=== PATIENT | female | born 1950 | race Caucasian/White ===

== ENCOUNTER 2024-10-06 11:10 | Outpatient (CLI) | payer MEDICARE, BC, SELFPAY ==
--- NOTE | ~2024-10-06 | CT_ITS ---
CT Scan of the Chest without Contrast: Clinical Indication: Chest pain Technique: Contiguous sections were acquired throughout the chest without intravenous contrast. Dose reduction technique was used on this scan by utilizing automated exposure control and iterative recon struction technique. The dose-length product (DLP) was 191.92 mGy-cm. Findings: There is no evidence of any significant mediastinal, hilar or axillary lymphadenopathy. There are mil d atherosclerotic calcifications of the aorta and coronary arteries. There is no evidence of pleural or pericardial effusion. There is severe emphysema. Celsite medial right upper lobe granuloma present. 4 mm nodule noted the i nferior right upper lobe (axial image 60). There is bibasilar peripheral chronic interstitial change. Images through the upper abdomen reveal no abnormalities. Impression: Severe emphysema with bibasilar peripheral chronic interstitial change. 4 mm right upper lobe nodule, as detailed above. Consider one-year follow-up exam. Reviewed, dictated and finalized at location . Impression: Severe emphysema with bibasilar peripheral chronic interstitial change. 4 mm right upper lobe nodule, as detailed above. Consider one-year follow-up ex am.
--- NOTE | ~2024-10-06 | CT_ITS ---
CT of the Abdomen: Indication: Abdominal pain Technique: 2.5 mm axial scans were obtained through the abdomen prior to and following intravenous a dministration of 100 cc of Omnipaque 350. Dose reduction technique was used on this scan by utilizing automated exposure control and iterative reconstruction technique. The dose-length product (DLP) was 677.65 mGy-cm. Findings: Scans through the lung bases demonstrate peripheral chronic interstitial change. There is linear bibasilar scarring as well.. The liver, spleen, pancreas, gallbladder, adrenals and kidneys are within normal limits. There are at herosclerotic calcifications of the aorta. No lymphadenopathy. Visualized bowel loops are unremarkable. No ascites. Impression: Bibasilar chronic interstitial pulmonary disease. No other significant findings. Reviewed, dictated and finalized at [facility]. Impression: Bibasilar chronic interstitial pulmonary disease. No other significant findings.
[2024-10-06 11:59] LABS: Estimated Glomerular Filt Rate 49
== END 2024-10-06 11:11 | disposition home or self-care (01) ==
LOC: MICIMG 11:14
PROVIDERS: PCP Family Medicine; Visit Provider Internal Medicine
DX: J43.9 Emphysema, unspecified (principal); J84.89 Other specified interstitial pulmonary diseases; R91.1 Solitary pulmonary nodule
CPT/HCPCS: 71250; 74170; Q9967

== ENCOUNTER 2024-11-20 15:42 | Inpatient (IN) | payer MEDICARE, BC, SELFPAY ==
--- NOTE | ~2024-11-20 | US_ITS ---
US abdomen limited INDICATION: Right upper quadrant pain. Pancreatitis. PROCEDURE: Realtime right upper abdominal ultrasound. COMPARISON: CT dated 11/20/2024 FINDINGS: Pancreas appears thickened and echogenic, consistent with known pancreatitis. Diffusely ec hogenic liver, consistent with fatty infiltration. There is normal directional flow in the portal ve in. The gallbladder is normal without stones, gallbladder wall thickening or pericholecystic fluid. Comm on bile duct measures 2 mm. No sonographic Box's sign. IMPRESSION: 1: Thickened echogenic pancreas, consistent with known pancreatitis. 2: Fatty infiltration of the liver. Reviewed, dictated and finalized at location A.
--- NOTE | ~2024-11-20 | CT_ITS ---
EXAMINATION: CT abdomen pelvis w con DATE: 11/20/2024 18:18 INDICATION: abd pain; elevated lipase TECHNIQUE: Computed tomography (CT) of the abdomen and pelvis was performed with 100 mL Omnipaque-350 intravenous contrast. Automated exposure control and iterative reconstruction technique were employe d. The dose-length product was 344.42 mGy-cm. COMPARISON: CT abdomen, 10/06/2024. FINDINGS: Lower thorax: Bibasilar chronic interstitial lung disease. Mitral and coronary artery calcification. Liver: Diffuse fatty infiltration. Biliary/Gallbladder: Gallbladder is normal. No bile duct dilation. Pancreas: Moderate pancreatic edema and moderate surrounding inflammatory stranding/fluid. No duct di lation. No mass Spleen: Normal. Adrenals:No mass. Kidneys: No suspicious mass, obstructing stone, or hydronephrosis. Bilateral hypodensities, too small to characterize but most likely represent cysts. Simple right lower pole cyst. GI tract: Mild gastric wall edema. Mild wall thickening of the second portion of the duodenum, likely reactive. No small or large bowel dilation. Normal appendix. Diverticulosis without diverticulitis. Mesentery/Peritoneum: No ascites, mass, or free air. Retroperitoneum: No mass. Pelvis: Pelvic organs are within normal limits. Soft Tissues: Small fat-containing uncomplicated appearing umbilical hernia. Bones: No acute osseous finding. IMPRESSION: Chronic interstitial lung disease. Mild esophagitis/gastritis. Hepatic steatosis. Acute interstitial pancreatitis. Reviewed, dictated and finalized at location K.
--- NOTE | ~2024-11-20 | XR_ITS ---
Portable chest x-ray Comparison: None Clinical History: Shortness of breath Findings: Small bilateral pleural effusions are present with mild bibasilar pulmonary edema/atelecta sis. Cardiomediastinal silhouette is stable. Bones and soft tissues are unremarkable. Impression: Small bilateral pleural effusions with mild bibasilar pulmonary edema/atelectasis. Reviewed, dictated and finalized at location . Impression: Small bilateral pleural effusions with mild bibasilar pulmonary edema/atelectas is.
[2024-11-20 15:51] VITALS: BP 147/72; PULSE 56; RESP 16; TEMP 36.6; O2SAT 95
[2024-11-20 16:42] LABS: Basophils Percent Auto 0.2 % (0.2-1.2); Eosinophils Percent Auto 0.1 % (0-4.4); Hematocrit 40.2 % (37.0-47.0); Hemoglobin 12.8 g/dL (12.0-15.0); Immature Granulocyte Absolute 0.03 K/mm3 (0.00-0.031); Immature Granulocyte Percent A 0.3 % (0-0.5); Lymphocytes Absolute Auto 0.63 K/mm3 (0.9-3.2); Mean Corpuscular HGB Conc 31.8 g/dl (32-36); Mean Corpuscular Hemoglobin 25.8 pg (26-34); Mean Platelet Volume 10.1 fl (7.4-10.4); Monocytes Absolute Auto 0.3 K/mm3 (0.1-0.6); Monocytes Percent Auto 2.5 % (2.6-8.5); Neutrophils Absolute Auto 9.5 K/mm3 (1.3-6.7); Neutrophils Percent Auto 90.9 % (45.5-73.1); Platelet Count Result 276 k/mm3 (150-375); Red Blood Count 4.96 M/mm3 (4.2-5.4); White Blood Count 10.5 K/mm3 (4.5-10.0)
[2024-11-20 16:54] LABS: Alanine Aminotransferase 15 U/L (6-35); Albumin Level 4.1 g/dL (3.5-5.1); Alkaline Phosphatase 94 U/L (38-126); Anion Gap 12 mmol/L (4-12); Aspartate Amino Transferase 28 U/L (14-36); Bilirubin,Total 0.5 mg/dL (0.2-1.3); Blood Urea Nitrogen 26 mg/dL (7-17); Calcium 9.1 mg/dL (8.4-10.2); Carbon Dioxide 22 mmol/L (22-30); Chloride 102 mmol/L (98-107); Estimated CRCL calculation 52 ml/min; Estimated Glomerular Filt Rate > 60; Glucose 147 mg/dL (65-110); Potassium 3.8 mmol/L (3.4-5.0); Sodium 136 mmol/L (137-145)
[2024-11-20 16:59] LABS: Platelet Estimate Adequate (Adequate); Schistocytes None Seen
[2024-11-20 17:12] LABS: Lipase 7606 U/L (23-300)
[2024-11-20] MEDS: FAMOTIDINE 20 MG/2 ML VIAL IV PUSH (17:53)
[2024-11-20] MEDS: ONDANSETRON INJ 4 MG/2 ML VIAL IV PUSH (17:53)
[2024-11-20] MEDS: MORPHINE SULFATE (*CRX) 4 MG/ML INJ 2 MG IV PUSH (17:58)
[2024-11-20 18:00] VITALS: BP 159/58; PULSE 55; RESP 16; O2SAT 97
--- OUTSIDE RECORDS SUMMARY | 2024-11-20 18:11 | XMS_ITS | Data Portability ---
Author Organization [facility], Main Office Address [address] [place] [address] Care Team Providers Care Frame Stylist Name Role Phone TONE HUMPHREYS Primary Care Provider Assessment Encounter Date Assessment Date Assessment LastModified by Organization Details LastModified Time 08/27/2023 08/27/2023 D/w pt and daughter about her findings and further plan of care. Explained about different options for her. All meds verified with them. Meds as directed. Fall risk precautions explained. Educated them about alarming symptoms to monitor at home. Pt declined for Pulmo referral. F/u in 3 months (Pt declined to come early). [email or web address] Not available 08/27/2023 16:38:24 12/17/2023 12/17/2023 73 yo F with - WELL ADULT VISIT - HYPOTHYROIDISM - HLD - ANXIETY - RA - ALLERGIC DERMATITIS - EX-SMOKER Labs by Rheumat: 11/10/23. D/w pt and her daughter about her findings, recent labs & imagines and further plan of care. Will do other routine labs. All meds verified with them. Meds as directed. Diet and exercise explained. Fall risk precautions explained. Cont f/u with Rheumat as per schedule. Cont f/u with Ophtho as per schedule. Pt has not gone for LDCT chest. HM: WWE - Long time ago. Pt declined. Mammo - Pt declined. DEXA - Osteoporosis ++. Pt is on Injectable from her Rheumat. Colonoscopy - Cologuard 10/01/23, neg. Flu - 04/13. Tdap - 12/07. Pneumo - Pt declined. Shingrix - At pharmacy/HD. F/u in 3 weeks. Annual labs in 12/14. Not available 12/17/2023 15:00:13 07/06/2024 07/06/2024 D/w pt and her daughter about her findings and further plan of care. Educated about alarming symptoms to monitor at home and get checked in ED. [email or web address] Not available 07/06/2024 13:12:53 07/27/2024 07/27/2024 D/w pt and her daughter about her findings and further plan of care. Educated about alarming symptoms to monitor at home and get checked in ED. Not available 07/27/2024 12:11:55 Plan of Treatment Reminders Order Date Submit Date Provider Last Modified By Organization Details Last Modified Time Details Appointments Medicare Wellness 30 2024 01:00P M Tone Humphreys MD Not available Not available Not available Lab lipid panel, serum [address] (Lab), [address] [place], [address], 12/29/2023 08:32:52 HbA1c (hemoglob in A1c), blood 2023 024 [email or web address] [facility] (Lab), [address] [place], [address], 02/04/2024 14:43:39 TSH, serum or plasma [address] (Lab), [address] [place], [address], 12/29/2023 08:32:52 uric acid, serum or plasma [address] (Lab), [address] [place], [address], 12/29/2023 08:32:53 vitamin D3, 25-hydrox y, serum [address] (Lab), [address] [place], [address], 12/29/2023 08:32:53 noninvasi ve colorecta l cancer DNA + occult blood screening , QL, stool 2023 024 [email or web address] [facility] (Cologuard Orders Only), [address], [place], [address], 09/03/2023 08:09:20 Referral None recorded. Procedures None recorded. Surgeries None recorded. Imaging XR, ribs, unilatera l, w/ PA chest 2024 025 [email or web address] [facility], [facility]7 [facility], [facility] [address], [address], 07/06/2024 17:08:39 LDCT, chest, for lung cancer screening - *Please call pt to schedule* 2023 024 [id number] Not available 10/01/2023 10:22:00 Medication Orders Linzess 72 mcg capsule 2024 025 [facility] [address] [place], [address], 07/27/2024 13:03:47 buspirone 10 mg tablet 2024 025 [facility] [address] [place], [address], 07/27/2024 13:03:47 paroxetin e 20 mg tablet 2024 025 [facility] [address] [place], [address], 07/27/2024 13:03:46 pravastat in 40 mg tablet 2024 025 [facility] [address] [place], [address], 07/27/2024 13:03:45 buspirone 10 mg tablet 2024 025 [facility] [address] [place], [address], 07/06/2024 13:13:55 paroxetin e 20 mg tablet 2024 025 [facility] [address], [address], [place], [address], 07/06/2024 13:13:55 pantopraz ole 40 mg tablet,de layed release 2024 025 [facility] [address], [address], [place], [address], 07/06/2024 13:04:15 famotidin e 20 mg tablet 2024 025 [facility] [address], [address], [place], [address], 07/27/2024 12:52:12 pravastat in 40 mg tablet 2024 025 [facility] [address], [place], [address], 07/06/2024 13:13:53 triamcino lone acetonide 0.1 % topical cream 2023 024 [facility] [address], [address], [place], [address], 12/17/2023 14:52:24 paroxetin e 20 mg tablet 2023 024 [facility] [address], [address], [place], [address], 12/17/2023 14:52:27 buspirone 10 mg tablet 2023 024 [facility] [address], [address], [place], [address], 12/17/2023 14:52:26 pravastat in 40 mg tablet 2023 024 [facility] [address], [place], [address], 12/17/2023 14:52:25 levothyro xine 100 mcg tablet 2023 024 [facility] [address] [place], [address], 12/17/2023 14:52:25 albuterol sulfate HFA 90 mcg/actua tion aerosol inhaler 2023 024 [facility] [address] [place], [address], 12/17/2023 14:30:12 triamcino lone acetonide 0.1 % topical cream 2023 024 [facility] [address] [facility], [place], [address], 08/27/2023 15:57:19 escitalop nata 10 mg tablet 2023 024 [facility] [address], [address] [place], [address], 12/17/2023 14:59:14 buspirone 10 mg tablet 2023 024 [facility] [address] [place], [address], 08/27/2023 16:00:17 pravastat in 40 mg tablet 2023 024 [facility] [address] [place], [address], 08/27/2023 15:54:41 levothyro xine 100 mcg tablet 2023 024 [facility] [address] [place], [address], 08/27/2023 15:54:43 Patient TargetsNo targets recorded. Patient Instructions Encounter Date Encounter Id Patient Instructions Last Modified By Organization Details Last Modified Time 07/06/2024 [id number] fall risk education [email or web address] Not available 07/06/2024 13:14:10 07/27/2024 [id number] fall risk education [email or web address] Not available 07/27/2024 13:03:39 Reason for Referral None Reported. Results Created Date Observation Date Name Description Value Unit Range Abnormal Flag Note LastModifiedBy Organization Detail LastModifiedTime 10/01/19 24 10/01/2023 COLOG UARD cologuard result reportable NEGATI VE negati ve normal NEGAT COLIN TEST RESUL T. A negat colin Colog uard resul t indic ates a low likel ihood that a color ectal cance r (CRC) or advan gus adeno ma (meg omato us polyp s with more advan gus pre-m align ant featu res) is prese nt. The chanc e that a perso n with a negat colin Colog uard test has a color ectal cance r is less than 1 in 1500 (nega tive predi ctive value >99.9 %) or has an advan gus adeno ma is less than 5.3% (nega tive predi ctive value 94.7% ). These data are based on a prosp ectiv e cross -sect ional study of 10,00 0 indiv [place]ual [place] risk for color ectal cance r who were scree cristobal with both Colog uard and colon oscop y. (Ashley Alexis et al, N Engl J Med 2014; 370(1 4):12 86-12 97) The octavio l value (refe rence range ) for this assay is negat colin. COLOG UARD RE-SC REENI NG RECOM MENDA TION: Perio dic color ectal cance r scree riaz is an impor tant part of preve ntive healt hcare for asymp tomat ic indiv [place]ual [place] risk for color ectal cance r. Follo wing a negat colin Colog uard resul t, the Ameri can Cance r Socie ty and U.S. Multi -Soci ety Task Force scree riaz guide lines recom mend a Colog uard re-sc reeni ng inter juanjose of 3 years . Refer ences : Ameri can Cance r Socie ty Guide line for Color ectal Cance r Scree riaz: https ://dyan w.can cer.o rg/ca ncer/ colon -rect al-ca ncer/ detec tion- diagn osis- stagi ng/ac s-rec ommen datio ns.ht ml.; Lloyd DK, Leilani ward CR, Maxi SaundersK, Color ectal Cance r Scree riaz: Recom menda tions for Physi cians and Patie nts from the U.S. Multi -Soci ety Task Force on Color ectal Cance r Scree riaz , Augustus Byers oente rolog y 2017; 112:1 016-1 030. TEST DESCR IPTIO N: [place] site algor ithmi c carlyn sis of stool DNA-b marcelino russell with hemog lobin immun oassa y. Quant itati ve value s of indiv idual bioma rkers are not repor table and are not assoc iated with indiv idual bioma rker resul t refer ence range s. Colog uard is inten ded for color ectal cance r scree riaz of adult s of eithe r sex, 45 years or older , who are at [facility] for color ectal cance r (CRC) . Colog uard has been appro kelle for use by the U.S. FDA. The perfo rmanc e of Colog uard was estab lishe d in a cross secti onal study of [facility] adult s aged 50-84 . Colog uard perfo rmanc e in patie nts ages 45 to 49 years was estim ated by sub-g roup carlyn sis of near- age group s. Colon oscop ies perfo rmed for a posit colin resul t may find as the most clini blu signi ficavelino t lesio n: color ectal cance r [4.0% ], advan gus adeno ma (incl uding sessi le oz panda polyp s great er than or equal to 1cm diame ter) [20%] or non- advan gus adeno ma [31%] ; or no color ectal neopl janes [45%] . These estim ates are deriv ed from a prosp ectiv e cross -sect ional scree riaz study of 10,00 0 indiv idual s [place] risk for color ectal cance r who were scree cristobal with both Colog uard and colon oscop y. (Ashley Alexis et al, N Engl J Med 2014; 370(1 4):12 86-12 97.) Colog uard may produ ce a false negat colin or false posit colin resul t (no color ectal cance r or preca ncero us polyp prese nt at colon oscop y follo w up). A negat colin Colog uard test resul t does not guara ntee the absen ce of CRC or advan gus adeno ma (pre- cance r). The curre nt Colog uard scree riaz inter juanjose is every 3 years . (Amer ican Cance r Socie ty and U.S. Multi -Soci ety Task Force ). Colog uard perfo rmanc e data in a 0 patie nt pivot al study using colon oscop y as the refer ence metho d can be acces sed at the follo wing locat ion: www.e xactl abs.c om/re sulstevan . Addit ional descr iptio n of the Colog uard test proce ss, warni ngs and preca ution s can be found at www.c ologu daphne.c om. Not Available [facility] (Cologuard Orders Only) [address], [place], [address], 10/08/2023 17:43:26 02/02/20 24 02/03/2024 URIC ACID SERUM uric acid 5.7 mg/dL 2.5-6. 2 Not Available [facility] (Lab) [address] [place], [address], 02/03/2024 16:06:30 02/02/20 24 02/03/2024 LIPID PANEL cholesterol 190 mg/dL 140-19 9 NIH CARLY NSUS RECOM MENDA TION FOR MARIE STERO L: ADULT CHILD LOW RISK: <200 <170 BORDE RLINE : <200- 239 ----- HIGH RISK: >240 >200 Not Available [facility] (Lab) [address] [place], [address], 02/03/2024 16:05:44 02/02/20 24 02/03/2024 LIPID PANEL triglyceride s 146 mg/dL 0-150 NIH CARLY NSUS REPOR T RECOM MENDA TION FOR TRIGL YCERI MARTITA: ADULT CHILD LOW RISK: <150 ----- BODER LINE: 150-1 99 ----- HIGH RISK: >200 ----- Not Available [facility] (Lab) [address] [place], [address], 02/03/2024 16:05:44 02/02/20 24 02/03/2024 LIPID PANEL HDL cholesterol 61 mg/dL 40- Not Available [facility] (Lab) [address] [place], [address], 02/03/2024 16:05:44 02/02/20 24 02/03/2024 LIPID PANEL LDL cholesterol, calculated 100 mg/dL 0-130 NIH CARLY NSUS REPOR T RECOM MENDA TIONS FOR LDL: ADULT CHILD LOW RISK <130 <110 (OPTI MAL LDL) <100 ----- BORDE RLINE : 130-1 59 ----- HIGH RISK: >160 >130 A TRIGL YCERI DE RESUL T >400 INVAL IDATE S THE CALCU LATIO N FOR LDL FRACT IONAT ION - THE LDL RESUL T WILL NOT BE REPOR PANDA. Not Available [facility] (Lab) [address] [place], [address], 02/03/2024 16:05:44 02/02/20 24 02/03/2024 VITAM IN D 25-HY DROXY [id number] 31.9 NG/mL 30-100 Vitam in D Statu s: Defic ient: <20 ng/mL Insuf ficie nt: 20-29 ng/mL Suffi cient : 30-10 0 ng/mL Not Available [facility] (Lab) [address] [place], [address], 02/03/2024 16:15:17 02/02/20 24 02/03/2024 TSH W/REF MITCH FT4 TSH with reflex free T4 3.170 uIU/m L 0.465- 4.680 Not Available [facility] (Lab) [address] [place], [address], 02/03/2024 16:29:16 02/02/20 24 02/03/2024 HEMOG LOBIN A1C HA1C 6.0 % 4.0-6. 0 Diabe kathrin Scree riaz Crite lauro: <5.7% Consi stent with absen ce of diabe kathrin 5.7-6 .4% Consi stent with incre ased risk for diabe kathrin (pred iabet es) >OR=6 .5% Consi stent with diabe kathrin REFER ENCE: Diabe kathrin Care 2016, 39(Lowe ppl.1 ):s13 -s22 Not Available [facility] (Lab) [address] [place], [address], 02/03/2024 19:45:05 07/06/19 25 07/06/2024 XR, ribs, unila teral , w/ PA chest No observ ation record ed. [email or web address] [facility] [address] [facility] [address], [place], [address], 07/27/2024 13:00:17 10/07/19 25 10/06/2024 CT, chest , w/o contr ast No observ ation record ed. [facility] [address], [place], [address], 10/06/2024 14:11:17 10/07/19 25 10/06/2024 CT, abdom en, w/wo contr ast No observ ation record ed. [email or web address] [facility] [address], [place], [address], 10/06/2024 15:20:19 Result Notes None recorded. Problems Name Problem SNOMED Code Status Onset Date Resolution Date Notes Provider Name and Address Organization Details Recorded Time Insomnia 820088911 Active 2021 Not Available [facility] 3 02:52:06 Panic attack 758473568 Active 2017 Not Available [facility] 3 02:52:06 Hypothyroidis m 50532287 Active 2019 Not Available [facility] 3 02:52:06 Anxiety 11008981 Active 2021 Not Available [facility] 3 02:52:06 Hyperlipidemi a 93223840 Active 2017 Not Available [facility] 3 02:52:06 Pain of joint 63510639 Active 2017 Not Available [facility] 3 02:52:06 Rheumatoid arthritis 98514089 Active 2017 labs from 11/2017 Not Available [facility] 3 02:52:06 Renal insufficiency 710636272 Active 2021 Not Available [facility] 3 02:52:06 Hyperglycemia 75124302 Active 2021 Not Available [facility] 3 02:52:07 Disorder of connective tissue 595536580 Active 2023 Tone Humphreys MD [address], [address] , [employer] 4 15:47:43 Anxiety disorder 165248039 Active 2023 Tone Humphreys MD [address], [place], [address] , [employer] 4 15:48:10 Ex-smoker 2152378 Active 2023 Tone Humphreys MD [address], [place], [address] , [employer] 4 15:52:24 Allergic contact dermatitis 957416923 Active 2023 Tone Humphreys MD [address] [place], [address] , [employer] 4 15:56:43 Overweight 857046097 Active 2023 Tone Humphreys MD [address], [place], [address] , [employer] 4 14:48:39 Rib pain 612351566 Active 2024 Tone Humphreys MD [address], [place], [address] , [employer] 5 12:59:04 Gastroesophag eal reflux disease without esophagitis 823991768 Active 2024 Tone Humphreys MD [address], [place], [address] , [employer] 5 13:01:38 Osteoporosis 78898293 Active 2024 Tone Humphreys MD [address] [employer] / [place], [address] , [employer] 5 13:13:34 Chronic idiopathic constipation 31771654 Active 2024 Tone Humphreys MD [address], [place], [address] , [employer] 5 13:01:43 Problem Notes None recorded. Medical Equipment None Reported. Allergies Allergen ID Allergen Name Allergen Category Reaction Reaction Severity Criticality Documentation Date Start Date Code Code System Note Provider Name and Address Organization Details Recorded Time 4699 nickel environme nt other mild Not available 08/20/2022 56378 29 RxNorm blist ering Not Available [employer] 3 03:00:19 Medications Name Sig Start Date Stop Date Status Note LastModified by Organization Details LastModified Time bupropion HCl SR 150 mg tablet,12 hr sustained -release TAKE 1 TABLET BY MOUTH TWICE DAILY 02/25 completed Not Available Not Available Not Available prednison e 10 mg tablet TAKE 1 TABLET BY MOUTH ONCE DAILY FOR 5 DAYS 09/12 completed Not Available Not Available Not Available paroxetin e 10 mg tablet TAKE 1 TABLET BY MOUTH ONCE DAILY 02/25 completed Not Available Not Available Not Available azithromy cat 250 mg tablet 12/16 completed Not Available Not Available Not Available pravastat in 40 mg tablet TAKE 1 TABLET BY MOUTH ONCE DAILY AT BEDTIME 2024 active Not Available Not Available Not Avai lable benzonata te 200 mg capsule TAKE 1 CAPSULE BY MOUTH THREE TIMES DAILY NEEDED FOR COUGH 12/16 completed Not Available Not Available Not Available meloxicam 15 mg tablet Take 1 tablet every day by oral route. 04/01 completed Arthriti s Not Available Not Available Not Available alendrona te 70 mg tablet 03/15 completed Patient decided not to start due to risks and side effects. Not Available Not Available Not Available leflunomi de 20 mg tablet TAKE 1 TABLET BY MOUTH ONCE DAILY 07/27 completed Not Available Not Available Not Available triamcino lone acetonide 0.1 % topical cream APPLY A THIN LAYER OF CREAM TOPICALL Y TO THE AFFECTED AREA(S) TWICE DAILY active Not Available Not Available No t Available levothyro xine 75 mcg tablet Take 1 tablet every day by oral route. 04/21 completed Not Available Not Available Not Available ketorolac 0.5 % eye drops 10/19 completed Not Available Not Available Not Available levothyro xine 100 mcg tablet TAKE 1 TABLET BY MOUTH ONCE DAILY IN THE MORNING 2024 active Not Available Not Available Not Avai lable levothyro xine 88 mcg tablet TAKE 1 TABLET BY MOUTH ONCE DAILY 12/13 completed increase d to 100 mcg on 09/13/20 Not Available Not Available Not Available alprazola m 0.25 mg tablet Take 1 tablet 3 times a day by oral route. 03/15 completed only when needed Not Available Not Available Not Available famotidin e 20 mg tablet TAKE 1 TABLET BY MOUTH ONCE DAILY AT BEDTIME FOR 90 DAYS 07/27 completed Not Available Not Available Not Available methotrex ate sodium 2.5 mg tablet 03/15 completed Not Available Not Available Not Available prednison e 2.5 mg tablet TAKE 2 TABLETS BY MOUTH TWICE DAILY FOR 5 DAYS, THEN 1 TAB TWICE DAILY FOR 5 DAYS, THEN 1 TAB ONCE DAILY FOR 5 DAYS, THEN 1 TAB EVERY OTHER DAY FOR 5 DOSES AND STOP 07/27 completed Not Available Not Available Not Available paroxetin e 20 mg tablet Take 1 tablet by mouth once daily QAM 2024 active Not Available Not Available Not Avai lable pantopraz ole 40 mg tablet,de layed release TAKE 1 TABLET BY MOUTH ONCE DAILY IN THE MORNING FOR 90 DAYS 2024 active Not Available Not Available Not Avai lable buspirone 10 mg tablet Take 1 tablet twice a day by oral route as needed for 90 days. 2024 active Not Available Not Available Not Avai lable folic acid 1 mg tablet 1 tab po daily 03/20 completed Not Available Not Available Not Available hydroxych loroquine 200 mg tablet TAKE 2 TABLETS BY MOUTH ONCE DAILY active Not Available Not Available No t Available albuterol sulfate HFA 90 mcg/actua tion aerosol inhaler INHALE 2 PUFFS BY MOUTH EVERY 4 TO 6 HOURS NEEDED active Not Available Not Available No t Available cefdinir 300 mg capsule TK ONE C PO Q 12 H X 10 DAYS active Not Available Not Available No t Available escitalop nata 10 mg tablet TAKE 1 TABLET BY MOUTH ONCE DAILY DIRECTED 12/16 completed Not Available Not Available Not Available Asprin Ec Low Dose 81 mg tablet,de layed release Take 1 tablet every day by oral route. 03/20 completed Not Available Not Available Not Available moxifloxa cat 0.5 % eye drops 10/19 completed Not Available Not Available Not Available methotrex ate 2.5mg x10 for 1 day weekly 03/15 completed Every Thursday. Not Available Not Available Not Available diclofena c 1 % topical gel 02/25 completed Not Available Not Available Not Available levothyro xine 75 mcg capsule Take 1 capsule every day by oral route. 10/19 completed Not Available Not Available Not Available Lotemax 0.5 % eye gel drops 10/19 completed Not Available Not Available Not Available Flonase Allergy Relief 07/27 completed Not Available Not Available Not Available Linzess 72 mcg capsule TAKE 1 CAPSULE BY MOUTH ONCE DAILY DIRECTED active Not Available Not Available No t Available Vitals Date Recorded Body height Body mass index (BMI) Body weight Body temperature Oxygen saturation Oxygen saturation in Arterial blood by Pulse oximetry Heart rate Systolic blood pressure Diastolic blood pressure Provider Name and Address Organization Details Last Updated DateTime 5 154.94 cm 28.4 kg/m2 89699.6 1 g 96.6 [degF] 97 % 97 % 84 /min 100 mm[Hg] 70 mm[Hg] Joseline Cortez RN [facility] [employer] 5 12:53:54 Date Recorded Body height Body mass index (BMI) Body weight Body temperature Heart rate Respiratory rate Oxygen saturation Oxygen saturation in Arterial blood by Pulse oximetry Systolic blood pressure Diastolic blood pressure Provider Name and Address Organization Details Last Updated DateTime 5 154.94 cm 28.4 kg/m2 58644.2 1 g 96.8 [degF] 74 /min 20 /min 97 % 97 % 108 mm[Hg] 70 mm[Hg] Ellen Thomas RN [facility] [employer] 5 12:57:12 Date Recorded Body temperature Oxygen saturation Oxygen saturation in Arterial blood by Pulse oximetry Provider Name and Address Organization Details Last Updated DateTime 08/27/2023 96.3 [degF] 94 % 94 % Tone Humphreys MD [address] [facility], [address], [address] , [place] [employer] [facility] [employer] 08/27/2023 16:35:40 Date Recorded Body height Body mass index (BMI) Body weight Heart rate Respiratory rate Systolic blood pressure Diastolic blood pressure Provider Name and Address Organization Details Last Updated DateTime 4 167.64 cm 25.6 kg/m2 45439.0 4 g 74 /min 20 /min 140 mm[Hg] 80 mm[Hg] Ellen Thomas RN [facility] [employer] 4 15:43:07 Date Recorded Respiratory rate Provider Name a nd Address Organization Details Last Updated DateTime 12/17/2023 20 /min Pretty Burns [address], [place], [address], [place] [employer] [facility] [employer] 12/17/2023 14:58:39 Date Recorded Body mass index (BMI) Body weight Body temperature Heart rate Heart rate Systolic blood pressure Diastolic blood pressure Provider Name and Address Organization Details Last Updated DateTime 4 25.5 kg/m2 71075.9 9 g 97.7 [degF] 82 /min 82 /min 132 mm[Hg] 80 mm[Hg] Ellen Thomas RN [facility] [employer] 4 14:47:42 Date Recorded Body height Oxygen saturation Oxygen saturation in Arterial blood by Pulse oximetry Provider Name and Address Organization Details Last Updated DateTime 12/17/2023 167.64 cm 97 % 97 % Daina Rivero MA [facility] [employer] 12/17/2023 14:33:52 Date Recorded Body height Provider Name an d Address Organization Details Last Updated DateTime 02/02/2024 167.64 cm Ellen Thomas RN [facility] [employer] 02/02/2024 15:52:36 Social History Question Answer Notes LastModified by Organizat ion Details LastModified Time Tobacco Smoking Status Former Smoker Tone Humphreys MD [address] [place] [address], [address], [facility] [employer] [facility] [employer] 08/27/2023 15:51:53 Are You Blind Or Do You Have Difficulty Seeing? No Information not available 11/21/2022 What Is Your Level Of Caffeine Consumption? Heavy [id number] Information not available 08/20/2022 How Much Tobacco Do You Chew? None [id number] Information not available 08/20/2022 In The 14 Days Before Symptom Onset, Have You Had Close Contact With A Laboratory-confir med COVID-19 While That Case Was Ill? No [id number] Information not available 08/20/2022 In The 14 Days Before Symptom Onset, Have You Had Close Contact With A Person Who Is Under Investigation For COVID-19 While That Person Was Ill? No [id number] Information not available 08/20/2022 Are You Deaf Or Do You Have Serious Difficulty Hearing? No Information not available 11/21/2022 What Type Of Diet Are You Following? REGULAR [id number] Information not available 08/20/2022 Which Illicit Or Recreational Drugs Have You Used? None [id number] Information not available 08/20/2022 Have There Been Any Changes To Your Family Or Social Situation? No Information no t available 11/21/2022 Do You Use Insect Repellent Routinely? No Information not available 11/21/2022 Where Do You Live? SingleLevelHouse Information not available 11/21/2022 Do You Have Any Pets? No Information not available 11/21/2022 What Is Your Relationship Status? Information not available 11/21/2022 Do You Use Your Seat Belt Or Car Seat Routinely? Yes Information not available 11/21/2022 Do You Have Smoke And Carbon Monoxide Detectors In Your Home? Yes Information not available 11/21/2022 Are There Any Smokers In Your House? No Information not available 11/21/2022 Do You Participate In Social Media? Yes Information not available 11/21/2022 Do You Use Sunscreen Routinely? No Information not available 11/21/2022 Have You Recently Traveled Abroad? No Information not available 11/21/2022 Do You Have Difficulty Walking Or Climbing Stairs? No Information not available 11/21/2022 Sex: Unknown Functional Status Question Answer Note LastModified by Organizat ion Details LastModified Time What is your level of alcohol consumption? Occasional [id number] Information not available 08/20/2022 Do you or have you ever used smokeless tobacco? Never used smokeless tobacco [id number] Information not available 08/20/2022 Are you currently employed? No Information not available 11/21/2022 Do you have transportation difficulties? No Information not available 11/21/2022 Are you able to walk? YESWOREST Information not available 11/21/2022 Do you have difficulty doing errands alone? No Information not available 11/21/2022 Are you able to care for yourself? No Information n ot available 11/21/2022 Do you have difficulty dressing or bathing? No Information not available 11/21/2022 Do you or have you ever used e-cigarettes or vape? Never used electronic cigarettes [id number] Information not available 08/20/2022 What is your exercise level? Occasional [id number] Information not available 08/20/2022 Mental Status Question Answer Note LastModified by Organizat ion Details LastModified Time Do you feel stressed (tense, restless, nervous, or anxious, or unable to sleep at night)? [id number] Information not available 11/21/2022 Do you have difficulty concentrating, remembering or making decisions? No Information no t available 11/21/2022 Family History Nothing Reported Notes:cancer, DM, glaucoma, Hypertension, Thyroid, Rheumatoid Arthritis Medical History Condition Response ALLERGIES/HAYFEVER Y HIGH CHOLESTEROL / HYPERLIPIDEMIA Y HEARTBURN / REFLUX Y HYPERTENSION Y ANXIETY DISORDER Y Gynecological History Statement/Question Response If Post Menopausal, Age at Menopause 50 Date of Last Colonoscopy Most Recent Bone Density Date of Last Pap Smear Age at Menarche 14 Most Recent Mammogram Desired Control Method Obstetrics History GPAL:G 0 P 0 0 0 0 Immunizations Vaccine Type Date Status Note Provider Nam e and Address Organization Details Recorded Time SARS-COV-2 (COVID-19) vaccine, UNSPECIFIED 1 completed Not Available [facility] 08/20/2022 02:59:59 SARS-COV-2 (COVID-19) vaccine, UNSPECIFIED 1 completed Not Available [facility] 08/20/2022 02:59:59 Influenza, high-dose, quadrivalent, PF 0 completed Not Available [facility] 08/20/2022 02:59:59 Influenza, high-dose, trivalent, PF 9 completed Not Available [facility] 08/20/2022 02:59:59 Influenza, high-dose, trivalent, PF 8 completed Not Available [facility] 08/20/2022 03:00:00 Tdap 8 completed Not Available [facility] 08/20/2022 03:00:00 Past Encounters Encounter ID Performer Location Encounter Start Date Encounter Closed Date Diagnosis/Indication Diagnosis SNOMED-CT Code Diagnosis ICD10 Code Diagnosis Note [id number] Tone Humphreys MD [facility] [address] [address] 09/12/2020 00:00:00 09/12/2020 16:02:03 [id number] Tone Humphreys MD [address] [address] 12/13/2020 00:00:00 12/13/2020 15:16:47 [id number] Ellen Guzman NP [address] [address] 02/25/2022 00:00:00 02/25/2022 16:14:47 [id number] Ellen Guzman NP [address] [address] 11/21/2022 14:26:21 11/21/2022 15:20:23 Hyperlipidemia 95971023 E78.5 Low fat dietPravas tatin 40 mg po nightly. Hypothyroidism 46723158 E03.9 Levothyrox ine 100 mcg po dailyTSH Rheumatoid arthritis [address] Stephen.Le flunomide 20 mg po daily.Hydr oxychloroq uine 200 mg po daily. Insomnia 020295728 G47.0 0 Work on no naps to get body to rest at night Renal insufficiency 7231 25480 N28.9 Gfr 54 on [facility] labs from September 2022 Hyperglycemia 12764209 R 73.9 Good on 09/2022 labs. Anxiety 88651199 F41.9 Paroxetine 20 mg po daily. [id number] Tone Humphreys MD [address] [address] 08/27/2023 15:32:51 08/27/2023 16:39:22 Rheumatoid arthritis 83450398 M06.9 Disorder o f connective tissue 670346368 M35.9 Hypothyroidism 89620665 E03.9 Anxiety disorder 3351553 06 F41.9 Hyperlipidemia 92068140 E78.5 Mammogram declined 91855 5004 Z53.20 Screening for malignant neoplasm of colon 787083381 Z12.11 Ex-smoker 3154439 Z87.89 1 Allergic c ontact dermatitis 288954409 L23.9 [id number] Tone Humphreys MD [address] [address] 12/17/2023 14:19:07 12/17/2023 15:02:18 Anxiety disorder 206608074 F41.9 Hypothyroidism 21737976 E03.9 Disorder o f connective tissue 270549075 M35.9 Rheumatoid arthritis 698 73983 M06.9 Hyperlipidemia 14498105 E78.5 Mammogram declined 03397 5004 Z53.20 Ex-smoker 1586979 Z87.89 1 Allergic c ontact dermatitis 795048889 L23.9 Family his tory of diabetes mellitus 412624748 Z83.3 [id number] Tone Humphreys MD [address] [address] 02/02/2024 15:32:47 02/02/2024 15:54:03 [id number] Tone Humphreys MD [address] [address] 07/06/2024 12:41:20 07/06/2024 13:12:11 Fall W19.XXXD Rib pain 075092814 R07.8 1 Gastroesop hageal reflux disease without esophagitis 987953819 K21.9 Anxiety disorder F41.9 Hyperlipidemia 84014911 E78.5 Osteoporosis 13706801 M8 1.0 [id number] Tone Humphreys MD [address] [address] 07/27/2024 12:43:36 07/27/2024 13:55:13 Fall W19.XXXD Rib pain 688441324 R07.8 1 resolved Gastroesop hageal reflux disease without esophagitis 202184064 K21.9 Anxiety disorder 5124070 06 F41.9 Hyperlipidemia 22062167 E78.5 Osteoporosis 49682995 M8 1.0 Chronic id iopathic constipation 27736097 K59.04 Rheumatoid arthritis 698 97915 M06.9 Health Concerns Section Related Observation LastModified by Organization Detai ls LastModified Time None Recorded Concern Status LastModified by Organization Details LastModified Time None Recorded Advance Directives Directive None Recorded Payers Encounter Date Sequence Insurance Name Policy Number Policy Caldwell Covered Member ID Caldwell Member ID Guarantor Name 08/27/2023 1 [place] Dotty W Cook [id number] Dotty Cook 08/27/2023 2 [place] [id number] Jerson Cook [id number] Dotty Cook 12/17/2023 1 [place] Dotty W Cook [id number] Dotty Cook 12/17/2023 2 [place] [id number] Jerson Novaks [id number] Dotty Cook 02/02/2024 1 [place] Dotty W Cook [id number] Dotty Cook 02/02/2024 2 [place] [id number] Jerson Novaks [id number] Dotty Cook 07/06/2024 1 [place] Dotty W Cook [id number] Dotty Cook 07/06/2024 2 [place] [id number] Jerson Shirley Cook [id number] Dotty Cook 07/27/2024 1 [place] Dotty W Cook [id number] Dotty Cook 07/27/2024 2 [place] [id number] Jerson Novaks [id number] Dotty Cook Notes Date Note Type Note Provider Name and Address Organization Details Recorded Time 08/27/2023 text/html Pt is here with her daughter for f/u on her meds and chronic conditions. Doing overall well. Denies any problem with meds. Pt lives with her and her daughter lives next door and she helps her regularly. Pt says her anxiety is still not controlled and wants to try new med for it. Denies any mood swings/SI/HI. Pt doesn't want to see any counsellor/psychi atrist for this. Pt has connective tissue disorder and is f/u with [facility] [place] for it and is on meds by them. Tone Humphreys MD [address] [facility], [facility] [address], [place], [address], [employer] 08/27/2023 16:39:00 12/17/2023 text/html Pt is here with her daughter for her annual exam. Doing overall well. Denies any problem with meds. Pt lives with her and her daughter lives next door and she helps her regularly. Doing well with her anxiety. Denies any mood swings/SI/HI. Pt doesn't want to see any counsellor/psychi atrist for this. Pt has connective tissue disorder and is f/u with [facility] [place] for it and is on meds by them. Tone Humphreys MD [address] [facility], [address], [place], [address], [employer] [facility] [employer] 12/17/2023 15:01:08 07/06/2024 text/html ACV:Here with he r daughter. C/o Lt sided ribcage area pain, on/off since her fall at home from her bed on 03/26/24. No head trauma/LOC. Pt has not seen anyone for this since than. C/o chronic abdominal burning pain for last few months. Pt has tried otc antacids, but its not helping her. Denies any n/v/c/d/blood in stool. Denies any problem with meds. Pt lives with her and her daughter lives next door and she helps her regularly. Doing well with her anxiety. Denies any mood swings/SI/HI. Pt doesn't want to see any counsellor/psychi atrist for this. Pt has connective tissue disorder and is f/u with [facility] [place] for it and is on meds by them. Tone Humphreys MD [address], [address], [place], [address], [employer] [facility] [employer] 07/06/2024 13:14:54 07/27/2024 text/html FUV:Here with he r daughter. F/u on x-rays, meds and chronic conditions. Doing very much better than last visit. Denies any problem with meds. No new concern. C/o Lt sided ribcage area pain, on/off since her fall at home from her bed on 03/26/24. No head trauma/LOC. Pt has not seen anyone for this since than. C/o chronic abdominal burning pain for last few months. Pt has tried otc antacids, but its not helping her. Denies any n/v/c/d/blood in stool. Denies any problem with meds. Pt lives with her and her daughter lives next door and she helps her regularly. Doing well with her anxiety. Denies any mood swings/SI/HI. Pt doesn't want to see any counsellor/psychi atrist for this. Pt has connective tissue disorder & RA and is f/u with [facility] [place] for it and is on meds by them. Tone Humphreys MD [address] [place] [address], [facility] [address], [place], [address], [place] [facility] 07/27/2024 13:10:23 OBGyn Episode No OBEpisode recorded.
[2024-11-20 18:35] VITALS: BP 169/69; PULSE 59; RESP 20; O2SAT 94
--- NOTE | 2024-11-20 18:54 | ED_ITS ---
HPI - Abdominal Pain General Chief Complaint: Abdominal Pain Stated Complaint: Abd pain x 2100 last PM, N/V Time Seen by Provider: 11/20/24 16:27 History of Present Illness HPI narrative: Patient with abd pain diffusely, nausea/vomiting since last night; has never had symptoms like this before. Related Data Home Medications ?Medication ?Instructions ?Recorded ?Confirmed ?Last Taken ?Type diclofenac sodium 1 % topical gel 2 gm topical QID 06/07/19 07/21/23 Unknown History (Voltaren) paroxetine HCl 10 mg tablet 10 mg PO DAILY 06/07/19 07/21/23 Unknown History pravastatin 40 mg tablet 40 mg PO DAILY 06/07/19 07/21/23 Unknown History loratadine 10 mg tablet 10 mg PO DAILY 11/25/19 07/21/23 Unknown History omeprazole 20 mg capsule,delayed 20 mg PO DAILY PRN Allergy Symptoms 02/03/20 07/21/23 Unknown History release levothyroxine 88 mcg tablet 88 mcg PO DAILY 04/06/20 07/21/23 Unknown History (Euthyrox) calcium 600 mg (as carbonate)-vit 1 tablet PO BID 12/12/20 07/21/23 Unknown History D3 10 mcg (400 unit)-minerals tablet docusate sodium 100 mg capsule 100 mg PO DAILY 12/12/20 07/21/23 Unknown History polyvinyl alcohol 1.4 % eye drops 1 drp EACH EYE DAILY 05/06/22 07/21/23 Unknown History vit A 7,160 unit-vit C 113 mg-vit tablet PO 05/06/22 07/21/23 Unknown History E 100 mseh-fohd-xwqzqu tablet Allergies Allergy/AdvReac Type Severity Reaction Status Date / Time nickel Allergy Intermediate Hives Verified 11/20/24 15:43 Review of Systems 2 Review of Systems: All systems reviewed & are unremarkable except as noted in HPI and below PMFSH Past Medical History Medical History Anxiety Generalized osteoarthritis of multiple sites Hyperthyroidism Mixed connective tissue disease Seasonal allergies Seronegative rheumatoid arthritis of multiple sites Vitamin D deficiency Surgical History Surgical History H/O breast biopsy History of carpal tunnel release S/P rotator cuff repair Family History Family History Sibling Rheumatoid arthritis Mother Arthritis Father Diabetes mellitus Social History Social History Smoking status: Former smoker Tobacco type: cigarettes Second hand tobacco smoke exposure: No Alcohol intake: never Substance use: never Substance use type: does not use Do You Feel Safe in your Home?: Yes Lack of Transportation: No Lack of Food: Never True Current Housing: I Have Housing Concerned About Future Housing: No Difficulty Paying Gas/Electric Bills: No Difficulty Paying for Meds: No Currently Unemployed: No Education: Decline to Answer Difficulty w/ Childcare or Family Care: No Living arrangements: with family Occupation/Education: occupation Gender identity (if verbalized by the patient): Female Sexual Orientation (if Verbalized by the Patient): Straight or Heterosexual Spiritual care concerns: No Exam 2 Narrative: EXAMINATION OF ORGAN SYSTEMS/BODY AREAS: Constitutional: Vital signs per nursing GENERAL:[No acute distress, non-toxic appearing.] HEAD: Normal with no signs of head trauma. EYES: EOMI, conjunctiva normal ENT: Hearing grossly intact LUNGS: Nonlabored breathing. HEART: [Regular rate and rhythm] ABD: [Soft], [tender to palpation] diffusely. EXT: Normal range of motion SKIN: [No rashes or lesions.] NEURO: [Alert and oriented x 3. No gross focal sensory or strength deficits.] PSYCH: Normal affect Course Vital Signs Vital signs: Vital Signs Temperature 98 F 11/20/24 15:51 Pulse Rate 56 L 11/20/24 15:51 Respiratory Rate 16 11/20/24 15:51 Blood Pressure 147/72 H 11/20/24 15:51 Pulse Oximetry 95 11/20/24 15:51 Oxygen Delivery Room Air 11/20/24 15:51 Temperature 98 F 11/20/24 15:51 Pulse Rate 59 L 11/20/24 18:35 Respiratory Rate 20 11/20/24 18:35 Blood Pressure 169/69 H 11/20/24 18:35 Pulse Oximetry 94 11/20/24 18:35 Oxygen Delivery Room Air 11/20/24 15:51 MDM - Abdominal Pain MDM Narrative Medical decision making narrative: Electronic medical record was reviewed. Patient presented to the ED with complaint of [abdominal pain and vomiting]. Vitals [were within acceptable limits]. Physical exam revealed [tenderness to palpation in abdomen]. Based on the patient's history and physical exam, my differential includes but is not limited to [gastritis, gastroenteritis, cholecystitis, pancreatitis, appendicitis]. [IV access was established by nursing staff. Patient was given zofran, famotidine, morphine]. CBC, BMP, lipase, LFTs, bilirubin and alk phos were obtained. Labs were pertinent for lipase 7600. [Decision was made to obtain a CT-abdomen to evaluate for acute abdominal process. CT-abdomen per radiology interpretation shows pancreatitis.] On reevaluation, the patient states that they are feeling better. There were no further witnessed episodes of vomiting in the emergency department. Discussed with patient and family her diagnosis and CT, they are agreeable to admission, discussed with hospitalist. Lab Data 11/20/24 16:38 11/20/24 16:38 Labs: Lab Results 11/20/24 Range/Units 16:38 WBC 10.5 H (4.5-10.0) K/mm3 RBC 4.96 (4.2-5.4) M/mm3 Hgb 12.8 (12.0-15.0) g/dL Hct 40.2 (37.0-47.0) % MCV 81.0 (80-100) fl MCH 25.8 L (26-34) pg MCHC 31.8 L (32-36) g/dl RDW 14.0 (11.5-14.5) % Plt Count 276 (150-375) k/mm3 MPV 10.1 (7.4-10.4) fl Immature Gran % (Auto) 0.3 (0-0.5) % Neut % (Auto) 90.9 H (45.5-73.1) % Lymph % (Auto) 6.0 L (18.3-44.2) % [place] % (Auto) 2.5 L (2.6-8.5) % Eos % (Auto) 0.1 (0-4.4) % Baso % (Auto) 0.2 (0.2-1.2) % Lymph # (Auto) 0.63 L (0.9-3.2) K/mm3 [place] # (Auto) 0.3 (0.1-0.6) K/mm3 Eos # (Auto) 0.0 (0-0.3) K/mm3 Baso # (Auto) 0.0 (0.0-0.1) K/mm3 Abs Immat Gran (auto) 0.03 (0.00-0.031) K/mm3 Absolute Neuts (auto) 9.5 H (1.3-6.7) K/mm3 Absolute Nucleated RBC 0.000 (0.0-0.012) K/mm3 Band Neutrophils % Not Reportable Nucleated RBC % 0.0 (0.0-0.2) % Platelet Estimate Adequate (Adequate) Schistocytes None seen Sodium 136 L (137-145) mmol/L Potassium 3.8 (3.4-5.0) mmol/L Chloride 102 (98-107) mmol/L Carbon Dioxide 22 (22-30) mmol/L Anion Gap 12 (4-12) mmol/L BUN 26 H (7-17) mg/dL Creatinine 0.74 (0.7-1.0) mg/dL Estim Creat Clear Calc 52 ml/min Estimated GFR > 60 (59 - ) Glucose 147 H (65-110) mg/dL Calcium 9.1 (8.4-10.2) mg/dL Total Bilirubin 0.5 (0.2-1.3) mg/dL AST 28 (14-36) U/L ALT 15 (6-35) U/L Alkaline Phosphatase 94 (38-126) U/L Total Protein 8.0 (6.3-8.2) g/dL Albumin 4.1 (3.5-5.1) g/dL Lipase 7606 H (23-300) U/L Imaging Data Radiologist's impression: ITS Impressions Abdomen/Pelvis CT 11/20/24 18:41 IMPRESSION: Chronic interstitial lung disease. Mild esophagitis/gastritis. Hepatic steatosis. Acute interstitial pancreatitis. Discharge Plan Discharge Clinical Impression: Pancreatitis Patient Disposition: Still a Patient Condition: Serious Patient Language: Bulgarian Prescriptions: No Action paroxetine HCl 10 mg tablet 10 mg PO DAILY pravastatin 40 mg tablet 40 mg PO DAILY diclofenac sodium [Voltaren] 1 % gel 2 gm TOPICAL QID omeprazole 20 mg capsule,delayed release(DR/EC) 20 mg PO DAILY MDD 20 mg PRN (Reason: Allergy Symptoms) levothyroxine [Euthyrox] 88 mcg tablet 88 mcg PO DAILY docusate sodium 100 mg capsule 100 mg PO DAILY calcium carbonate-vit D3-min 600 mg calcium- 400 unit tablet 1 tablet PO BID vit A-vit C-vit P-srbr-qmzepr 7,160-113-100 cgmx-gm-svwm tablet PO polyvinyl alcohol 1.4 % drops 1 drp EACH EYE DAILY prednisone 2.5 mg tablet 2.5 mg PO DAILY Qty: 40 1RF Rx Instructions: take 2 tabs BID for 5 days, 1 tab BID for 5 days, 1 tab qd for 5 days and then 1 tab qod for 5 doses and stop leflunomide 20 mg tablet 20 mg PO DAILY Qty: 90 1RF hydroxychloroquine [Plaquenil] 200 mg tablet 400 mg PO DAILY Qty: 180 1RF loratadine 10 mg tablet 10 mg PO DAILY prednisone 2.5 mg tablet 2.5 mg PO DAILY Qty: 40 0RF Rx Instructions: take 2 tabs BID for 5 days, 1 tab BID for 5 days, 1 tab qd for 5 days and then 1 tab qod for 5 doses and stop Follow-up/Referrals: Petr,MD Tone [Primary Care Provider] -
[2024-11-20] MEDS: MORPHINE SULFATE (*CRX) 2 MG/ML INJ IV PUSH ×2 (19:46→21:07)
[2024-11-20] MEDS: LACTATED RINGERS 1,000 ML 999 ML IV CONT (19:46)
--- NOTE | 2024-11-20 20:23 | P.HP_ITS ---
H&P: HPI History of Present Illness Date/Time: 11/20/24 22:00 Chief Complaint: Abdominal pain. Narrative: This is a 74-year-old female with seronegative rheumatoid arthritis, undifferentiated connective tissue disease, emphysema, postablative hypothyroidism, gastroesophageal reflux disease, hyperlipidemia, and anxiety who presented to the emergency department via private vehicle for evaluation of abdominal pain. She had a subway sandwich to for dinner last evening and she developed diffuse, upper abdominal pain radiating through to the back not long after. Associated symptoms include nausea, vomiting, and dry heaves. She has never had symptoms similar to this. She denies fever, chills, sweats, chest pain, shortness of breath, hematemesis, melena, hematochezia, and dysuria. No history of gallbladder disease, peptic ulcers, or pancreatitis. In the ED: Vital signs were stable on arrival. Labs are significant for WBC count of 10.5, sodium 136, BUN 26, creatinine 0.74, glucose 147, lipase 7606. Abdomen/pelvis CT showed acute interstitial pancreatitis, hepatic steatosis, mild esophagitis/gastritis, and chronic interstitial lung disease. She received analgesics and antiemetics and she is being admitted in this setting for further treatment and evaluation. She has no history of pancreatitis and denies history of high triglycerides and alcohol abuse. No recent change in medications. Review of Systems Review of Systems: 12 systems were reviewed and are negativ e except for as per HPI. [facility] Past Medical History Medical History (Updated 11/21/24 @ 06:04 by Dulce Sinha PA-C) Thyroid goiter status post radioactive iodine ablation Hypothyroidism Undifferentiated connective tissue disease Seronegative rheumatoid arthritis of multiple sites Seasonal allergies Anxiety Generalized osteoarthritis of multiple sites Vitamin D deficiency Mixed connective tissue disease Surgical History Surgical History History of cataract extraction History of repair of rotator cuff History of breast biopsy History of carpal tunnel release Family History Family History Sibling Rheumatoid arthritis Mother Arthritis Father Diabetes mellitus Social History Social History Social History: Surrogate medical decision maker: Agustina Rivera, daughter. Code status: Full code. Smoking status: Former smoker Tobacco type: cigarettes Second hand tobacco smoke exposure: No Alcohol intake: never Substance use: never Substance use type: does not use Do You Feel Safe in your Home?: Yes Lack of Transportation: No Lack of Food: Never True Current Housing: I Have Housing Concerned About Future Housing: No Difficulty Paying Gas/Electric Bills: No Difficulty Paying for Meds: No Currently Unemployed: No Education: High School Diploma/GED Difficulty w/ Childcare or Family Care: No Living arrangements: with family Occupation/Education: occupation Spiritual care concerns: No Meds Home Medications and Allergies Home Medications ?Medication ?Instructions ?Recorded ?Confirmed ?Type paroxetine HCl 10 mg tablet 10 mg PO DAILY 06/07/19 11/20/24 History pravastatin 40 mg tablet 40 mg PO DAILY 06/07/19 11/20/24 History omeprazole 20 mg capsule,delayed 20 mg PO DAILY PRN Allergy Symptoms 02/03/20 11/20/24 History release levothyroxine 88 mcg tablet 88 mcg PO DAILY 04/06/20 11/20/24 History (Euthyrox) calcium 600 mg (as carbonate)-vit 1 tablet PO BID 12/12/20 11/20/24 History D3 10 mcg (400 unit)-minerals tablet hydroxychloroquine 200 mg tablet 400 mg (2 x 200 mg) PO DAILY #180 11/17/23 11/20/24 Rx (Plaquenil) tabs Allergies Allergy/AdvReac Type Severity Reaction Status Date / Time nickel Allergy Intermediate Hives Verified 11/20/24 15:43 Vital Signs Vital Signs - 24 hr 11/20/24 15:51 11/20/24 18:00 11/20/24 18:35 Temperature 98 F Pulse Rate 56 L 55 L 59 L Respiratory Rate 16 16 20 Blood Pressure 147/72 H 159/58 H 169/69 H Pulse Oximetry 95 97 94 Oxygen Delivery Room Air Exam Narrative: General: Moderately ill-appearing female sitting up in bed. Weight: 69.1 kg. BMI: 27.9. HEENT: PERRL, EOMI. Sclera anicteric. Tacky mucous membranes. Neck: Supple. Respiratory: Lungs are clear to auscultation bilaterally. Cardiovascular: Regular rate and rhythm with S1-S2. Soft murmur at the left sternal border. Gastrointestinal: Abdomen is soft and slightly distended with hypoactive bowel sounds. She is tender to palpation in epigastric and left upper quadrant. No guarding or rebound tenderness. Skin: Warm and dry. Extremities: No cyanosis, clubbing, or edema. Radial and pedal pulses intact. Neurological: Alert. Cranial nerves 2-12 are grossly intact. No gross focal deficits to casual conversation. Psychiatric: Pleasant and cooperative with normal mood and affect. Judgment and insight intact. H&P: Results Labs Labs: Short CBC 11/20/24 Range/Units 16:38 WBC 10.5 H (4.5-10.0) K/mm3 Hgb 12.8 (12.0-15.0) g/dL Hct 40.2 (37.0-47.0) % Plt Count 276 (150-375) k/mm3 BMP 11/20/24 16:38 Sodium 136 L Potassium 3.8 Chloride 102 Carbon Dioxide 22 BUN 26 H Creatinine 0.74 Glucose 147 H Calcium 9.1 Liver Function 11/20/24 Range/Units 16:38 Total Bilirubin 0.5 (0.2-1.3) mg/dL AST 28 (14-36) U/L ALT 15 (6-35) U/L Alkaline Phosphatase 94 (38-126) U/L Albumin 4.1 (3.5-5.1) g/dL Impressions Abdomen/Pelvis CT 11/20/24 18:41 IMPRESSION: Chronic interstitial lung disease. Mild esophagitis/gastritis. Hepatic steatosis. Acute interstitial pancreatitis. Assessment and Plan Assessment and plan (1) Acute pancreatitis: Code(s): K85.90 - Acute pancreatitis without necrosis or infection, unspecified Status: Acute (2) Elevated blood pressure reading: Code(s): R03.0 - Elevated blood-pressure reading, without diagnosis of hypertension Status: Acute (3) Hypothyroidism: Code(s): E03.9 - Hypothyroidism, unspecified Status: Acute (4) Seronegative rheumatoid arthritis of multiple sites: Code(s): M06.09 - Rheumatoid arthritis without rheumatoid factor, multiple sites Status: Acute Plan The patient presented to the emergency department for evaluation of abdominal pain, nausea, and vomiting since last evening as detailed in HPI. Labs, imaging, EKG, and all reports were personally reviewed. She has acute interstitial pancreatitis of unclear etiology. She does not use alcohol, triglycerides are within normal limits, and none of her medications are once that typically lead to pancreatitis although she does take omeprazole on occasion. It is possible that she has autoimmune pancreatitis given her history of autoimmune diseases. Check IgG4 subclasses. GI consulted for their opinion. Continue supportive care including IV fluid rehydration and bowel rest. Analgesics and antiemetics are available as needed. Blood pressures have been running high, likely due to pain, and will be monitored closely. Her home medications will be reviewed and resumed as appropriate. Findings and treatment plan were discussed with the patient. Questions were solicited and answered to satisfaction. The patient's medical management will be taken over by the hospitalist team in a.m. Quality VTE Prophylaxis VTE prophylaxis: pharmacologic ordered Hospitalist [facility] Advance Care Plan I have confirmed that the patient's Advanced Care Plan is present, code status is documented, or surrogate decision maker is listed in patient medical record.: Yes Medication Reconciliation I have utilized all available resources to obtain, update and review the patients current medications (includes all prescriptions, OTC, herbals, cannabis, and nutritional supplements).: Yes
[2024-11-20 21:32] VITALS: BMI 27.8
--- NOTE | 2024-11-20 21:33 | ADMGEN ---
This patient, Jennifer Cook, was admitted to Medical Room 249-01. Patient/family oriented to hospital policies and general routines including ID bracelet, bed and alarms, visiting hours, pain management, procedures, bathroom and other care routines, personal items, smoking policy, room service/diet, and visiting hours. Information on how to activate the Rapid Response Team has been discussed. Patient/Family are encouraged to report perceived risks to care and to ask questions if they do not understand what they are told or what they should do.
[2024-11-20 21:49] VITALS: BMI 27.8
[2024-11-20 22:00] VITALS: BP 180/67; PULSE 60; RESP 18; TEMP 36.5; O2SAT 94
[2024-11-20] MEDS: SODIUM CHLORIDE 0.9% IV 1,000 ML 125 ML IV CONT (22:35)
[2024-11-21] VITALS (9 sets, daily range): BP systolic 143–149; BP diastolic 55–62; PULSE 57–60; RESP 18–20; TEMP 36.7–37.1; O2SAT 80–96
[2024-11-21] MEDS: MORPHINE SULFATE (*CRX) 4 MG/ML INJ IV PUSH ×3 (00:12→15:14)
[2024-11-21] MEDS: ONDANSETRON INJ 4 MG/2 ML VIAL IV PUSH (00:12)
[2024-11-21 00:19] LABS: Triglycerides 67 mg/dL (<150)
[2024-11-21] MEDS: PROCHLORPERAZINE EDISYLATE 10 MG/2 ML VIAL IV PUSH ×2 (05:10→15:15)
[2024-11-21 05:37] LABS: Hematocrit 37.9 % (37.0-47.0); Hemoglobin 12.1 g/dL (12.0-15.0); Mean Corpuscular HGB Conc 31.9 g/dl (32-36); Mean Corpuscular Volume 81.5 fl (80-100); Mean Platelet Volume 10.3 fl (7.4-10.4); Platelet Count Result 277 k/mm3 (150-375); Red Blood Count 4.65 M/mm3 (4.2-5.4); Red Cell Distribution Width 14.3 % (11.5-14.5); White Blood Count 11.5 K/mm3 (4.5-10.0)
[2024-11-21 05:56] LABS: Alanine Aminotransferase 14 U/L (6-35); Albumin Level 3.6 g/dL (3.5-5.1); Alkaline Phosphatase 76 U/L (38-126); Anion Gap 9 mmol/L (4-12); Aspartate Amino Transferase 26 U/L (14-36); Bilirubin,Total 0.4 mg/dL (0.2-1.3); Blood Urea Nitrogen 20 mg/dL (7-17); Calcium 8.2 mg/dL (8.4-10.2); Carbon Dioxide 25 mmol/L (22-30); Chloride 101 mmol/L (98-107); Estimated CRCL calculation 59 ml/min; Estimated Glomerular Filt Rate > 60; Glucose 116 mg/dL (65-110); Magnesium 1.4 mg/dL (1.6-2.3); Potassium 3.5 mmol/L (3.4-5.0); Sodium 135 mmol/L (137-145)
[2024-11-21 06:11] LABS: Lipase 8463 U/L (23-300)
[2024-11-21] MEDS: MAGNESIUM SULF 2 GM/WATER 50ML 2 GM/50 ML BAG IVPB (06:19)
[2024-11-21] MEDS: SODIUM CHLORIDE 0.9% IV 1,000 ML 125 ML IV CONT ×2 (06:19→17:18)
[2024-11-21] MEDS: LEVOTHYROXINE SODIUM 88 MCG TABLET PO (06:19)
--- NOTE | 2024-11-21 08:18 | P.CONGI_ITS ---
Assessment and Plan Assessment and plan (1) Acute pancreatitis: Qualifiers: Pancreatitis type: drug induced Acute pancreatitis complication: no infection or necrosis Qualified Code(s): K85.30 - Drug induced acute pancreatitis without necrosis or infection Code(s): K85.90 - Acute pancreatitis without necrosis or infection, unspecified Status: Acute (2) Abnormal digestive system diagnostic imaging: Code(s): R93.3 - Abnormal findings on diagnostic imaging of other parts of digestive tract Status: Acute (3) Gastritis: Qualifiers: Gastritis type: other gastritis Chronicity: unspecified Gastritis bleeding: without bleeding Qualified Code(s): K29.60 - Other gastritis without bleeding Code(s): K29.70 - Gastritis, unspecified, without bleeding Status: Acute (4) Esophagitis: Code(s): K20.90 - Esophagitis, unspecified without bleeding Status: Acute (5) Nausea and vomiting: Qualifiers: Vomiting type: bilious vomiting Qualified Code(s): R11.14 - Bilious vomiting Code(s): R11.2 - Nausea with vomiting, unspecified Status: Acute (6) Generalized abdominal pain: Code(s): R10.84 - Generalized abdominal pain Status: Acute (7) Hepatic steatosis: Code(s): K76.0 - Fatty (change of) liver, not elsewhere classified Status: Acute Plan 1. Acute pancreatitis/generalized abdominal pain the/elevated lipase: Patient has never had an EGD. She presented to the emergency room 11/20/2024 with complaints of abdominal pain, nausea and vomiting that had been occurring x1 day. Prior to her hospitalization the patient was started on a course of doxycycline for a tooth abscess which she states she completed a day or 2 prior to her hospitalization. She denies any recent ill contacts. She denies any prior history of pancreatitis. On admission lipase 7606 and today 8463. LFTs normal. CT showed acute interstitial pancreatitis but no abnormal gallbladder findings or bile duct dilation. DDX: Acute infectious/inflammatory process versus medication induced versus idiopathic. * Pancreatitis may be secondary to recent doxycycline course as her symptoms started shortly after completing her antibiotics * Continue supportive care with pain management * Try advancing diet tomorrow if tolerated starting with clear liquids * Continue IV fluids * No improvement may consider MRCP for more detailed evaluation of the biliary ducts and pancreas 2. Nausea/vomiting/GERD/abnormal imaging digestive showing gastritis and esophagitis: Patient has never had an EGD. CT on admission showed mild esophagitis and gastritis. According to records the patient is on omeprazole 20 mg daily and denies any reflux symptoms but patient cannot confirm that she has been taking her PPI. She states that her nausea is nearly constant and is more chronic in nature but vomiting only happened x3 episodes prior to her ER visit. DDX: Inadequate acid suppression versus nonacid reflux versus motility disorder. * Continue supportive care with antiemetics * Care with NSAIDs and aspirin containing products * Protonix 40 mg daily, which should be continued as outpatient * Patient advised to follow up outpatient at which time we will discuss scheduling an EGD to follow-up on chronic symptoms and abnormal CT findings 3. Hepatic steatosis: CT on admission showed hepatic steatosis. Patient denies any prior history of liver disease. LFTs are normal. She states she has a rare social drinker. BMI 28%. History of high cholesterol. * No further workup required at this time additional workup can be done as outpatient if needed Thank you very much for allowing me to share in the care of this very nice patient. This report may have been done utilizing a voice recognition system. Attempts have been made to correct errors. However, there may be uncorrected grammatical, spelling, and recognition errors present. GI Consult Note Consult date/time: 11/21/24 08:18 Reason for consult: Pancreatitis HPI: Jennifer Cook is a 74 year old female with past medical surgical history of anxiety, hyperthyroidism with postablative hypothyroidism, mixed connective tissue disease, RA, emphysema, GERD, HLD and vitamin-D deficiency. She presented to the emergency room yesterday with complaints of abdominal pain, nausea and vomiting. Patient was admitted for pancreatitis. GI has been consulted for pancreatitis. Patient's grandson colon was present throughout the entire visit. Patient states that she had an acute onset of GI symptoms about 1 day before her ER visit. She states that she was having generalized abdominal pain that was severe at times. She is unable to say if this pain change with food intake as she did not eat after the pain started. She was having nausea and vomiting prior to admission and states that she threw up 3 times. She is still having constant nausea but denies any vomiting since admission. She is on omeprazole 20 mg daily denies any reflux symptoms. She states she is having 2 bowel movements daily that are formed non urgent. She denies any abdominal bloating, odynophagia, dysphagia, regurgitation, early satiety, appetite or weight loss. Denies diarrhea, constipation, hematochezia, or melena. Prior to her ER visit she denies any new medication changes but states that she did just complete a course of doxycycline for a tooth abscess. She denies any recent ill contacts. She uses ibuprofen on as-needed basis a few times daily over the past 1-2 weeks. Denies any aspirin or anticoagulant use. She is a rare social drinker, quit smoking 14 years ago and denies marijuana use. Family history includes a paternal aunt with liver cancer but otherwise negative for CRC or IBD. ENDOSCOPY HISTORY: EGD: Patient has never had an EGD COLONOSCOPY: She has never had a colonoscopy but states that she had a negative Cologuard done a few months ago LABS AND STOOL STUDIES: Labs 11/21/2024: Sodium 135, potassium 3.5, BUN 20, creatinine 0.65, GFR >60, calcium 8.2, magnesium 1.4 WBC 12, Hgb 12, Hct 38, MCV 82, platelets 277 Total bilirubin 0.4, AST 26, ALT 14, Alkaline Phos 76, albumin 3.6, lipase 8463 TSH 1.700 IMAGING: CT abd/pelvis w/contrast 11/20/2024: IMPRESSION: Chronic interstitial lung disease. Mild esophagitis/gastritis. Hepatic steatosis. Acute interstitial pancreatitis. CT abd/pelvis w/contrast 10/06/2024: Impression: Bibasilar chronic interstitial pulmonary disease. No other significant findings. Chest CT w/o contrast 10/06/2024: Impression: Severe emphysema with bibasilar peripheral chronic interstitial change. 4 mm right upper lobe nodule, as detailed above. Consider one-year follow-up exam. Review of Systems 2 Constitutional: Constitutional: Reports as per HPI ENT: Reports as per HPI Cardiovascular: Cardiovascular: Reports as per HPI, Denies chest pain and Denies dyspnea Respiratory: Respiratory: Denies cough and Denies dyspnea Gastrointestinal: Gastrointestinal: Reports as per HPI Musculoskeletal: Musculoskeletal: Reports as per HPI Integumentary/Breasts: Skin/Breast: Reports as per HPI Psychiatric: Psychiatric: Reports as per HPI Endocrine: Endocrine: Reports no additional endocrine complaints Hematologic/Lymphatic: Hematologic/Lymphatic: Reports no additional hematologic/lymphatic complaints [facility] Past Medical History Medical History (Updated 11/21/24 @ 12:32 by Adele Patel APRN) Thyroid goiter status post radioactive iodine ablation Hypothyroidism Undifferentiated connective tissue disease Seronegative rheumatoid arthritis of multiple sites Seasonal allergies Anxiety Generalized osteoarthritis of multiple sites Vitamin D deficiency Mixed connective tissue disease Surgical History Surgical History History of cataract extraction History of repair of rotator cuff History of breast biopsy History of carpal tunnel release Family History Family History Sibling Rheumatoid arthritis Mother Arthritis Father Diabetes mellitus Social History Social History Social History: Surrogate medical decision maker: Agustina Rivera, daughter. Code status: Full code. Smoking status: Former smoker Tobacco type: cigarettes Second hand tobacco smoke exposure: No Alcohol intake: never Substance use: never Substance use type: does not use Do You Feel Safe in your Home?: Yes Lack of Transportation: No Lack of Food: Never True Current Housing: I Have Housing Concerned About Future Housing: No Difficulty Paying Gas/Electric Bills: No Difficulty Paying for Meds: No Currently Unemployed: No Education: High School Diploma/GED Difficulty w/ Childcare or Family Care: No Living arrangements: with family Occupation/Education: occupation Spiritual care concerns: No Meds Home Medications and Allergies Home Medications ?Medication ?Instructions ?Recorded ?Confirmed ?Type paroxetine HCl 10 mg tablet 10 mg PO DAILY 06/07/19 11/20/24 History pravastatin 40 mg tablet 40 mg PO DAILY 06/07/19 11/20/24 History omeprazole 20 mg capsule,delayed 20 mg PO DAILY PRN Allergy Symptoms 02/03/20 11/20/24 History release levothyroxine 88 mcg tablet 88 mcg PO DAILY 04/06/20 11/20/24 History (Euthyrox) calcium 600 mg (as carbonate)-vit 1 tablet PO BID 12/12/20 11/20/24 History D3 10 mcg (400 unit)-minerals tablet hydroxychloroquine 200 mg tablet 400 mg (2 x 200 mg) PO DAILY #180 11/17/23 11/20/24 Rx (Plaquenil) tabs Allergies Allergy/AdvReac Type Severity Reaction Status Date / Time nickel Allergy Intermediate Hives Verified 11/20/24 15:43 Vital Signs Vital Signs - 24 hr 11/20/24 15:51 11/20/24 18:00 11/20/24 18:35 Temperature 98 F Pulse Rate 56 L 55 L 59 L Respiratory Rate 16 16 20 Blood Pressure 147/72 H 159/58 H 169/69 H Pulse Oximetry 95 97 94 Oxygen Delivery Room Air 11/20/24 22:00 11/20/24 22:26 11/21/24 06:00 Temperature 97.7 F 98.4 F Pulse Rate 60 60 Respiratory Rate 18 18 Blood Pressure 180/67 H 143/55 H Pulse Oximetry 94 90 Oxygen Delivery Room Air Exam 2 Const: General: cooperative, healthy appearing, comfortable, no acute distress and well developed Orientation/consciousness: oriented to person, oriented to place, oriented to time and patient oriented x3 HENMT: Head: normal to inspection, normocephalic and atraumatic Mouth: Yes Normal oral and palatal mucosa present and Yes moist mucous membranes Eyes: General: appearance normal, both eyes and all related structures C onjunctivae: conjunctivae normal Sclera: sclerae normal Pupils: Equal, round and reactive pupils present Neck: Neck: normal visual inspection Chest: Chest palpation & inspection: normal inspection of the chest Resp: Effort & Inspection: normal respiratory effort and able to speak in complete sentences Auscultation: diminished lung sounds Other: nasal cannula Cardio: Jugular venous distension: no JVD Rate: regular rate Rhythm: r egular rhythm Heart sounds: S1 normal heart sound present and S2 normal heart sound present GI: Inspection: normal to inspection GI Palp: Yes Soft to palpation and Yes No hepatosplenomegaly present Auscultation: normal bowel sounds Rectal Exam: deferred Skin: General skin exam: normal color and no rashes or lesions noted Neuro: General: oriented to person, oriented to place, oriented to time and patient oriented x3 Cranial nerves: Yes Equal, round and reactive pupils present Speech: normal speech Extrem: General: normal to inspection and no clubbing, cyanosis or edema Psych: Appearance: grossly normal and well kempt Affect: normal affect Results Labs 11/21/24 05:08 11/21/24 05:08 Labs: Short CBC 11/20/24 11/21/24 Range/Units 16:38 05:08 WBC 10.5 H 11.5 H (4.5-10.0) K/mm3 Hgb 12.8 12.1 (12.0-15.0) g/dL Hct 40.2 37.9 (37.0-47.0) % Plt Count 276 277 (150-375) k/mm3 BMP 11/20/24 11/21/24 16:38 05:08 Sodium 136 L 135 L Potassium 3.8 3.5 Chloride 102 101 Carbon Dioxide 22 25 BUN 26 H 20 H Creatinine 0.74 0.65 L Glucose 147 H 116 H Calcium 9.1 8.2 L Liver Function 11/20/24 11/21/24 Range/Units 16:38 05:08 Total Bilirubin 0.5 0.4 (0.2-1.3) mg/dL AST 28 26 (14-36) U/L ALT 15 14 (6-35) U/L Alkaline Phosphatase 94 76 (38-126) U/L Albumin 4.1 3.6 (3.5-5.1) g/dL
--- NOTE | 2024-11-21 08:25 | PCRCNOTE ---
During oxygen rounds RT found patient on room air with an O2 sat of 80%. RT tried 2 fingers on the patient's left hand and another finger on her right hand and was getting the same HR and same O2 reading of 80%. RT placed patient on 2L and patient came up to 90%. Titrated O2 to 3L and patient now satting 92%. MJ Triana notified.
[2024-11-21] MEDS: PARoxetine 10 MG TABLET PO (08:46)
[2024-11-21] MEDS: PRAVASTATIN SODIUM 20 MG TABLET 40 MG PO (08:46)
[2024-11-21] MEDS: ENOXAPARIN 40 MG/0.4 ML SYRINGE SUB-Q (08:47)
[2024-11-21] MEDS: MORPHINE SULFATE (*CRX) 2 MG/ML INJ IV PUSH (11:41)
[2024-11-21] MEDS: CALCIUM/VITAMIN D 500 MG/5 MCG (200 I.U.) TABLET PO ×2 (11:41→17:18)
--- NOTE | 2024-11-21 12:34 | P.PNIM_ITS ---
Progress Note: A&P Assessment and Plan (1) Acute pancreatitis: Qualifiers: Pancreatitis type: drug induced Acute pancreatitis complication: no infection or necrosis Qualified Code(s): K85.30 - Drug induced acute pancreatitis without necrosis or infection Code(s): K85.90 - Acute pancreatitis without necrosis or infection, unspecified Status: Acute (2) Elevated blood pressure reading: Code(s): R03.0 - Elevated blood-pressure reading, without diagnosis of hypertension Status: Acute (3) Hypothyroidism: Code(s): E03.9 - Hypothyroidism, unspecified Status: Acute (4) Seronegative rheumatoid arthritis of multiple sites: Code(s): M06.09 - Rheumatoid arthritis without rheumatoid factor, multiple sites Status: Acute Plan Acute pancreatitis Continue Pain control PRN RUQ US and Lipid panel ordered continue IVF, start fluid diet tomorrow monitor HTN titrate home meds with clinical course Hypothyroidism continue home meds RA continue home meds DVT prophylaxis on Aq Lovenox Subjective Date/time seen: 11/21/24 12:34 Interval history: Comfortable at bedside Noted pain is much improved today Review of Systems Review of Systems: 12 systems were reviewed and are negativ e except for as per HPI. Exam Narrative: General: Moderately ill-appearing female sitting up in bed. Weight: 69.1 kg. BMI: 27.9. HEENT: PERRL, EOMI. Sclera anicteric. Tacky mucous membranes. Neck: Supple. Respiratory: Lungs are clear to auscultation bilaterally. Cardiovascular: Regular rate and rhythm with S1-S2. Soft murmur at the left sternal border. Gastrointestinal: Abdomen is soft and slightly distended with hypoactive bowel sounds. She is tender to palpation in epigastric and left upper quadrant. No guarding or rebound tenderness. Skin: Warm and dry. Extremities: No cyanosis, clubbing, or edema. Radial and pedal pulses intact. Neurological: Alert. Cranial nerves 2-12 are grossly intact. No gross focal deficits to casual conversation. Psychiatric: Pleasant and cooperative with normal mood and affect. Judgment and insight intact. Objective Data Vital Signs Vital Signs: Vital Signs - 24 hr 11/20/24 15:51 11/20/24 18:00 11/20/24 18:35 Temperature 98 F Pulse Rate 56 L 55 L 59 L Respiratory Rate 16 16 20 Blood Pressure 147/72 H 159/58 H 169/69 H Pulse Oximetry 95 97 94 Oxygen Delivery Room Air Oxygen Flow Rate Fraction of Inspired Oxygen 11/20/24 22:00 11/20/24 22:26 11/21/24 06:00 Temperature 97.7 F 98.4 F Pulse Rate 60 60 Respiratory Rate 18 18 Blood Pressure 180/67 H 143/55 H Pulse Oximetry 94 90 Oxygen Delivery Room Air Oxygen Flow Rate Fraction of Inspired Oxygen 11/21/24 08:18 11/21/24 08:20 11/21/24 08:24 Temperature Pulse Rate Respiratory Rate Blood Pressure Pulse Oximetry 80 L 90 92 Oxygen Delivery Room Air Nasal Cannula Nasal Cannula Oxygen Flow Rate 2 3 Fraction of Inspired Oxygen 21 28 32 11/21/24 08:30 Temperature Pulse Rate Respiratory Rate Blood Pressure Pulse Oximetry 92 Oxygen Delivery Nasal Cannula Oxygen Flow Rate 3 Fraction of Inspired Oxygen Intake/Output Intake/Output: Intake & Output 11/18/24 11/19/24 11/20/24 11/21/24 23:59 23:59 23:59 23:59 Intake Total 1000 966.7 Balance 1000 966.7 Meds/Results Medications: Active Medications Generic Name Dose Route Start Last Admin Trade Name Freq PRN Reason Stop Dose Admin Calcium Carbonate 500 mg 11/21/24 12:00 11/21/24 11:41 Calcium/Vitamin D 500 Mg/5 Mcg (200 I.U.) Tablet PO 500 mg 1200,1700 [facility] Administration Enoxaparin Sodium 40 mg 11/21/24 09:00 11/21/24 08:47 Enoxaparin 40 Mg/0.4 Ml Syringe SUB-Q 40 mg DAILY [facility] Administration Hydroxychloroquine Sulfate 400 mg 11/21/24 09:00 11/21/24 08:46 Hydroxychloroquine Sulfate 200 Mg Tablet PO Not Given DAILY [facility] Sodium Chloride 1,000 mls @ 125 mls/hr 11/20/24 22:20 11/21/24 06:19 Normal Saline Iv IV CONT 125 mls/hr .Q8H [facility] Administration Levothyroxine Sodium 88 mcg 11/21/24 06:30 11/21/24 06:19 Levothyroxine Sodium 88 Mcg Tablet PO 88 mcg DAILY@0630 [facility] Administration Morphine Sulfate 4 mg 11/20/24 20:24 11/21/24 05:02 Morphine Sulfate (*Crx) 4 Mg/Ml Inj IV PUSH 4 mg Q4H PRN Administration Pain Rated 7-10 Morphine Sulfate 2 mg 11/20/24 22:16 11/21/24 11:41 Morphine Sulfate (*Crx) 2 Mg/Ml Inj IV PUSH 2 mg Q4H PRN Administration Pain Rated 4-6 Paroxetine HCl 10 mg 11/21/24 09:00 11/21/24 08:46 Paroxetine 10 Mg Tablet PO 10 mg DAILY [facility] Administration Pravastatin Sodium 40 mg 11/21/24 09:00 11/21/24 08:46 Pravastatin Sodium 20 Mg Tablet PO 40 mg DAILY [facility] Administration Prochlorperazine Edisylate 10 mg 11/21/24 05:16 Prochlorperazine Edisylate 10 Mg/2 Ml Vial IV PUSH Q6H PRN Nausea And Vomiting Radiology Results: ITS Impressions Abdomen/Pelvis CT 11/20/24 18:41 IMPRESSION: Chronic interstitial lung disease. Mild esophagitis/gastritis. Hepatic steatosis. Acute interstitial pancreatitis. Labs Labs: Laboratory Results - last 24 hr 11/20/24 11/20/24 11/21/24 16:38 23:57 05:08 WBC 10.5 H 11.5 H RBC 4.96 4.65 Hgb 12.8 12.1 Hct 40.2 37.9 MCV 81.0 81.5 MCH 25.8 L 26.0 MCHC 31.8 L 31.9 L RDW 14.0 14.3 Plt Count 276 277 MPV 10.1 10.3 Immature Gran % (Auto) 0.3 Neut % (Auto) 90.9 H Lymph % (Auto) 6.0 L [place] % (Auto) 2.5 L Eos % (Auto) 0.1 Baso % (Auto) 0.2 Lymph # (Auto) 0.63 L [place] # (Auto) 0.3 Eos # (Auto) 0.0 Baso # (Auto) 0.0 Abs Immat Gran (auto) 0.03 Absolute Neuts (auto) 9.5 H Absolute Nucleated RBC 0.000 Band Neutrophils % Not Reportable Nucleated RBC % 0.0 Platelet Estimate Adequate Schistocytes None seen Sodium 136 L 135 L Potassium 3.8 3.5 Chloride 102 101 Carbon Dioxide 22 25 Anion Gap 12 9 BUN 26 H 20 H Creatinine 0.74 0.65 L Estim Creat Clear Calc 52 59 Estimated GFR > 60 > 60 Glucose 147 H 116 H Calcium 9.1 8.2 L Magnesium 1.4 L Total Bilirubin 0.5 0.4 AST 28 26 ALT 15 14 Alkaline Phosphatase 94 76 Total Protein 8.0 7.0 Albumin 4.1 3.6 Triglycerides 67 Lipase 7606 H 8463 H TSH (Reflex) 1.700 Quality VTE Prophylaxis VTE prophylaxis: pharmacologic ordered
[2024-11-22] MEDS: MORPHINE SULFATE (*CRX) 2 MG/ML INJ IV PUSH ×3 (00:33→17:48)
[2024-11-22] MEDS: PROCHLORPERAZINE EDISYLATE 10 MG/2 ML VIAL IV PUSH (00:34)
[2024-11-22 03:06] VITALS: O2SAT 96
[2024-11-22 05:33] LABS: Alanine Aminotransferase 10 U/L (6-35); Albumin Level 2.9 g/dL (3.5-5.1); Alkaline Phosphatase 65 U/L (38-126); Anion Gap 4 mmol/L (4-12); Aspartate Amino Transferase 26 U/L (14-36); Bilirubin,Total 0.4 mg/dL (0.2-1.3); Blood Urea Nitrogen 23 mg/dL (7-17); Calcium 7.7 mg/dL (8.4-10.2); Carbon Dioxide 28 mmol/L (22-30); Chloride 103 mmol/L (98-107); Estimated CRCL calculation 60 ml/min; Estimated Glomerular Filt Rate > 60; Glucose 93 mg/dL (65-110); Potassium 3.7 mmol/L (3.4-5.0); Sodium 135 mmol/L (137-145)
[2024-11-22 05:38] LABS: Cholesterol 112 mg/dL (0-200); HDL Direct 47 mg/dL; Triglycerides 59 mg/dL (<150)
[2024-11-22 05:45] LABS: Lipase 1743 U/L (23-300)
[2024-11-22] MEDS: LEVOTHYROXINE SODIUM 88 MCG TABLET PO (05:48)
[2024-11-22 05:49] LABS: LDL Cholesterol Direct 36 mg/dL; NT Pro B Type Natriuretic Pept 2640 pg/mL (19.9-100)
[2024-11-22 06:00] VITALS: BP 137/58; PULSE 64; RESP 20; TEMP 36.6; O2SAT 94
[2024-11-22 06:49] LABS: Hematocrit 35.1 % (37.0-47.0); Hemoglobin 10.9 g/dL (12.0-15.0); Mean Corpuscular HGB Conc 31.1 g/dl (32-36); Mean Corpuscular Volume 83.8 fl (80-100); Mean Platelet Volume 10.7 fl (7.4-10.4); Platelet Count Result 227 k/mm3 (150-375); Red Blood Count 4.19 M/mm3 (4.2-5.4); Red Cell Distribution Width 14.6 % (11.5-14.5); White Blood Count 19.1 K/mm3 (4.5-10.0)
[2024-11-22 07:17] LABS: Anisocytosis 1+; Band Neutrophils Percent 9 % (0-6); Lymphocytes Absolute Manual 0.57 K/mm3 (1.1-4.5); Lymphocytes Percent Manual 3 % (18-44); Monocytes Absolute Manual 0.19 K/mm3 (0.1-0.90); Monocytes Percent Manual 1 % (3-9); Neutrophils Absolute Manual 18.33 K/mm3 (1.3-6.7); Neutrophils Percent Manual 87 % (46-73); Platelet Estimate Adequate (Adequate); Schistocytes None Seen; Smudge Cells PRESENT; Total Cells Counted 100
[2024-11-22 08:00] VITALS: PULSE 64; RESP 20; O2SAT 94
[2024-11-22] MEDS: ENOXAPARIN 40 MG/0.4 ML SYRINGE SUB-Q (08:56)
[2024-11-22] MEDS: PANTOPRAZOLE 40 MG TABLET PO (08:56)
[2024-11-22] MEDS: PARoxetine 10 MG TABLET PO (08:56)
[2024-11-22] MEDS: PRAVASTATIN SODIUM 20 MG TABLET 40 MG PO (08:56)
[2024-11-22 14:00] VITALS: BP 138/55; PULSE 66; RESP 18; TEMP 36.4; O2SAT 97
--- NOTE | 2024-11-22 15:46 | P.PNIM_ITS ---
Progress Note: A&P Assessment and Plan (1) Acute pancreatitis: Qualifiers: Pancreatitis type: drug induced Acute pancreatitis complication: no infection or necrosis Qualified Code(s): K85.30 - Drug induced acute pancreatitis without necrosis or infection Code(s): K85.90 - Acute pancreatitis without necrosis or infection, unspecified Status: Acute (2) Elevated blood pressure reading: Code(s): R03.0 - Elevated blood-pressure reading, without diagnosis of hypertension Status: Acute (3) Hypothyroidism: Code(s): E03.9 - Hypothyroidism, unspecified Status: Acute (4) Seronegative rheumatoid arthritis of multiple sites: Code(s): M06.09 - Rheumatoid arthritis without rheumatoid factor, multiple sites Status: Acute Plan patient lipase have improved to 1743 compared to 8463 upon arrival her triglycerides are normal, patient white counts are rising 19.1 compared to 10.5 upon arrival however her clinical symptoms have improved and has no fever, patient is seen by GI and further recommendation to follow. will monitor. Acute pancreatitis Continue Pain control PRN RUQ US and Lipid panel ordered continue IVF, start fluid diet tomorrow monitor HTN titrate home meds with clinical course Hypothyroidism continue home meds RA continue home meds DVT prophylaxis on Aq Lovenox Subjective Date/time seen: 11/22/24 15:46 Interval history: Comfortable at bedside Noted pain is much improved today patient lipase have improved to 1743 compared to 8463 upon arrival her triglycerides are normal, patient white counts are rising 19.1 compared to 10.5 upon arrival however her clinical symptoms have improved and has no fever, patient is seen by GI and further recommendation to follow. will monitor. Review of Systems Review of Systems: 12 systems were reviewed and are negativ e except for as per HPI. Exam Narrative: Patient is comfortable, NAD HEENT: eyes are clear and none icteric LUNGS:CTA HEART: RR S1S2 ABD: BS+, Soft and nontender Lower extremities: no edema SKIN: nonjaundiced Neuro: grossly intact. Objective Data Vital Signs Vital Signs: Vital Signs - 24 hr 11/21/24 20:00 11/21/24 20:55 11/21/24 21:38 Temperature 37.1 C Pulse Rate 57 L Respiratory Rate 20 Blood Pressure 145/60 H Pulse Oximetry 96 96 96 Oxygen Delivery Nasal Cannula Nasal Cannula Oxygen Flow Rate 2 3 Fraction of Inspired Oxygen 32 11/22/24 03:06 11/22/24 06:00 11/22/24 08:00 Temperature 36.6 C Pulse Rate 64 64 Respiratory Rate 20 20 Blood Pressure 137/58 L Pulse Oximetry 96 94 94 Oxygen Delivery Nasal Cannula Nasal Cannula Oxygen Flow Rate 2 2 Fraction of Inspired Oxygen 28 11/22/24 14:00 Temperature 36.4 C L Pulse Rate 66 Respiratory Rate 18 Blood Pressure 138/55 L Pulse Oximetry 97 Oxygen Delivery Oxygen Flow Rate Fraction of Inspired Oxygen Intake/Output Intake/Output: Intake & Output 11/19/24 11/20/24 11/21/24 11/22/24 23:59 23:59 23:59 23:59 Intake Total 1000 2595.9 0 Balance 1000 2595.9 0 Meds/Results Medications: Active Medications Generic Name Dose Route Start Last Admin Trade Name Freq PRN Reason Stop Dose Admin Calcium Carbonate 500 mg 11/21/24 12:00 11/21/24 17:18 Calcium/Vitamin D 500 Mg/5 Mcg (200 I.U.) Tablet PO 500 mg 1200,1700 [facility] Administration Enoxaparin Sodium 40 mg 11/21/24 09:00 11/22/24 08:56 Enoxaparin 40 Mg/0.4 Ml Syringe SUB-Q 40 mg DAILY [facility] Administration Hydroxychloroquine Sulfate 400 mg 11/21/24 09:00 11/21/24 08:46 Hydroxychloroquine Sulfate 200 Mg Tablet PO Not Given DAILY [facility] Sodium Chloride 1,000 mls @ 125 mls/hr 11/20/24 22:20 11/22/24 03:59 Normal Saline Iv IV CONT Not Given .Q8H [facility] Levothyroxine Sodium 88 mcg 11/21/24 06:30 11/22/24 05:48 Levothyroxine Sodium 88 Mcg Tablet PO 88 mcg DAILY@0630 [facility] Administration Morphine Sulfate 4 mg 11/20/24 20:24 11/21/24 15:14 Morphine Sulfate (*Crx) 4 Mg/Ml Inj IV PUSH 4 mg Q4H PRN Administration Pain Rated 7-10 Morphine Sulfate 2 mg 11/20/24 22:16 11/22/24 11:08 Morphine Sulfate (*Crx) 2 Mg/Ml Inj IV PUSH 2 mg Q4H PRN Administration Pain Rated 4-6 Pantoprazole Sodium 40 mg 11/21/24 09:00 11/22/24 08:56 Pantoprazole 40 Mg Tablet PO 40 mg QAM [facility] Administration Paroxetine HCl 10 mg 11/21/24 09:00 11/22/24 08:56 Paroxetine 10 Mg Tablet PO 10 mg DAILY [facility] Administration Pravastatin Sodium 40 mg 11/21/24 09:00 11/22/24 08:56 Pravastatin Sodium 20 Mg Tablet PO 40 mg DAILY [facility] Administration Prochlorperazine Edisylate 10 mg 11/21/24 05:16 11/22/24 00:34 Prochlorperazine Edisylate 10 Mg/2 Ml Vial IV PUSH 10 mg Q6H PRN Administration Nausea And Vomiting Radiology Results: ITS Impressions Abdomen/Pelvis CT 11/20/24 18:41 IMPRESSION: Chronic interstitial lung disease. Mild esophagitis/gastritis. Hepatic steatosis. Acute interstitial pancreatitis. Abdomen Ultrasound 11/21/24 14:15 IMPRESSION: 1: Thickened echogenic pancreas, consistent with known pancreatitis. 2: Fatty infiltration of the liver. Chest X-Ray 11/22/24 06:00 Impression: Small bilateral pleural effusions with mild bibasilar pulmonary edema/atelectasis. Labs Labs: Laboratory Results - last 24 hr 11/22/24 05:02 WBC 19.1 H RBC 4.19 L Hgb 10.9 L Hct 35.1 L MCV 83.8 MCH 26.0 MCHC 31.1 L RDW 14.6 H Plt Count 227 MPV 10.7 H Immature Gran % (Auto) Not Reportable Neut % (Auto) Not Reportable Lymph % (Auto) Not Reportable [place] % (Auto) Not Reportable Eos % (Auto) Not Reportable Baso % (Auto) Not Reportable Lymph # (Auto) Not Reportable [place] # (Auto) Not Reportable Eos # (Auto) Not Reportable Baso # (Auto) Not Reportable Abs Immat Gran (auto) Not Reportable Absolute Neuts (auto) Not Reportable Absolute Nucleated RBC Not Reportable Total Counted 100 Neutrophils % (Manual) 87 H Band Neutrophils % 9 H Lymphocytes % (Manual) 3 L Monocytes % (Manual) 1 L Nucleated RBC % Not Reportable Abs Neuts (Manual) 18.33 H Abs Lymphs (Manual) 0.57 L Abs Monocytes (Manual) 0.19 Smudge Cells Present Platelet Estimate Adequate Anisocytosis 1+ Schistocytes None seen Sodium 135 L Potassium 3.7 Chloride 103 Carbon Dioxide 28 Anion Gap 4 BUN 23 H Creatinine 0.64 L Estim Creat Clear Calc 60 Estimated GFR > 60 Glucose 93 Calcium 7.7 L Magnesium 2.0 Total Bilirubin 0.4 AST 26 ALT 10 Alkaline Phosphatase 65 NT-Pro-B Natriuret Pep 2640 H Total Protein 6.0 L Albumin 2.9 L Triglycerides 59 Cholesterol 112 LDL Cholesterol Direct 36 HDL Direct 47 Lipase 1743 H Quality VTE Prophylaxis VTE prophylaxis: pharmacologic ordered
--- NOTE | 2024-11-22 16:33 | WPDGIPROGNO ---
Progress Note: A&P Assessment and Plan (1) Acute pancreatitis: Qualifiers: Pancreatitis type: drug induced Acute pancreatitis complication: no infection or necrosis Qualified Code(s): K85.30 - Drug induced acute pancreatitis without necrosis or infection Code(s): K85.90 - Acute pancreatitis without necrosis or infection, unspecified Status: Acute Assessment and Plan: no clear etiology, normal GB and bile duct normal liver enzymes and TG level clinically better, will advance diet (2) Generalized abdominal pain: Code(s): R10.84 - Generalized abdominal pain Status: Acute Assessment and Plan: improved (3) Nausea and vomiting: Qualifiers: Vomiting type: bilious vomiting Qualified Code(s): R11.14 - Bilious vomiting Code(s): R11.2 - Nausea with vomiting, unspecified Status: Acute (4) Hepatic steatosis: Code(s): K76.0 - Fatty (change of) liver, not elsewhere classified Status: Acute Assessment and Plan: incidental finding, normal liver enzymes she can follow-up in office Subjective Date/time seen: 11/22/24 16:33 Interval history: pain has improved, she is more hungry Review of Systems Review of Systems: All systems reviewed & are unremarkable except as noted in HPI and below Exam Const: General: comfortable and no acute distress HENMT: Face/Nose/Sinus: Normal nares present Eyes: General: appearance normal, both eyes and all related structures Resp: Auscultation: clear to auscultation bilaterally Cardio: Rate: regular rate Rhythm: regular rhythm GI: Inspection: non-distended GI Palp: Yes Soft to palpation Skin: General skin exam: normal color Neuro: Speech: normal speech Extrem: General: normal to inspection Psych: Mental Status: mental status grossly normal Objective Data Vital Signs Vital Signs: Vital Signs - 24 hr 11/21/24 20:00 11/21/24 20:55 11/21/24 21:38 Temperature 98.8 F Pulse Rate 57 L Respiratory Rate 20 Blood Pressure 145/60 H Pulse Oximetry 96 96 96 Oxygen Delivery Nasal Cannula Nasal Cannula Oxygen Flow Rate 2 3 Fraction of Inspired Oxygen 32 11/22/24 03:06 11/22/24 06:00 11/22/24 08:00 Temperature 97.8 F Pulse Rate 64 64 Respiratory Rate 20 20 Blood Pressure 137/58 L Pulse Oximetry 96 94 94 Oxygen Delivery Nasal Cannula Nasal Cannula Oxygen Flow Rate 2 2 Fraction of Inspired Oxygen 28 11/22/24 14:00 Temperature 97.5 F L Pulse Rate 66 Respiratory Rate 18 Blood Pressure 138/55 L Pulse Oximetry 97 Oxygen Delivery Oxygen Flow Rate Fraction of Inspired Oxygen Intake/Output Intake/Output: Intake & Output 11/19/24 11/20/24 11/21/24 11/22/24 23:59 23:59 23:59 23:59 Intake Total 1000 2595.9 0 Balance 1000 2595.9 0 Meds/Results Medications: Active Medications Generic Name Dose Route Start Last Admin Trade Name Freq PRN Reason Stop Dose Admin Calcium Carbonate 500 mg 11/21/24 12:00 11/21/24 17:18 Calcium/Vitamin D 500 Mg/5 Mcg (200 I.U.) Tablet PO 500 mg 1200,1700 [facility] Administration Enoxaparin Sodium 40 mg 11/21/24 09:00 11/22/24 08:56 Enoxaparin 40 Mg/0.4 Ml Syringe SUB-Q 40 mg DAILY [facility] Administration Hydroxychloroquine Sulfate 400 mg 11/21/24 09:00 11/21/24 08:46 Hydroxychloroquine Sulfate 200 Mg Tablet PO Not Given DAILY [facility] Sodium Chloride 1,000 mls @ 125 mls/hr 11/20/24 22:20 11/22/24 03:59 Normal Saline Iv IV CONT Not Given .Q8H [facility] Levothyroxine Sodium 88 mcg 11/21/24 06:30 11/22/24 05:48 Levothyroxine Sodium 88 Mcg Tablet PO 88 mcg DAILY@0630 [facility] Administration Morphine Sulfate 4 mg 11/20/24 20:24 11/21/24 15:14 Morphine Sulfate (*Crx) 4 Mg/Ml Inj IV PUSH 4 mg Q4H PRN Administration Pain Rated 7-10 Morphine Sulfate 2 mg 11/20/24 22:16 11/22/24 11:08 Morphine Sulfate (*Crx) 2 Mg/Ml Inj IV PUSH 2 mg Q4H PRN Administration Pain Rated 4-6 Pantoprazole Sodium 40 mg 11/21/24 09:00 11/22/24 08:56 Pantoprazole 40 Mg Tablet PO 40 mg QAM [facility] Administration Paroxetine HCl 10 mg 11/21/24 09:00 11/22/24 08:56 Paroxetine 10 Mg Tablet PO 10 mg DAILY [facility] Administration Pravastatin Sodium 40 mg 11/21/24 09:00 11/22/24 08:56 Pravastatin Sodium 20 Mg Tablet PO 40 mg DAILY [facility] Administration Prochlorperazine Edisylate 10 mg 11/21/24 05:16 11/22/24 00:34 Prochlorperazine Edisylate 10 Mg/2 Ml Vial IV PUSH 10 mg Q6H PRN Administration Nausea And Vomiting Radiology Results: ITS Impressions Abdomen/Pelvis CT 11/20/24 18:41 IMPRESSION: Chronic interstitial lung disease. Mild esophagitis/gastritis. Hepatic steatosis. Acute interstitial pancreatitis. Abdomen Ultrasound 11/21/24 14:15 IMPRESSION: 1: Thickened echogenic pancreas, consistent with known pancreatitis. 2: Fatty infiltration of the liver. Chest X-Ray 11/22/24 06:00 Impression: Small bilateral pleural effusions with mild bibasilar pulmonary edema/atelectasis. Labs Labs: Laboratory Results - last 24 hr 11/22/24 05:02 WBC 19.1 H RBC 4.19 L Hgb 10.9 L Hct 35.1 L MCV 83.8 MCH 26.0 MCHC 31.1 L RDW 14.6 H Plt Count 227 MPV 10.7 H Immature Gran % (Auto) Not Reportable Neut % (Auto) Not Reportable Lymph % (Auto) Not Reportable [place] % (Auto) Not Reportable Eos % (Auto) Not Reportable Baso % (Auto) Not Reportable Lymph # (Auto) Not Reportable [place] # (Auto) Not Reportable Eos # (Auto) Not Reportable Baso # (Auto) Not Reportable Abs Immat Gran (auto) Not Reportable Absolute Neuts (auto) Not Reportable Absolute Nucleated RBC Not Reportable Total Counted 100 Neutrophils % (Manual) 87 H Band Neutrophils % 9 H Lymphocytes % (Manual) 3 L Monocytes % (Manual) 1 L Nucleated RBC % Not Reportable Abs Neuts (Manual) 18.33 H Abs Lymphs (Manual) 0.57 L Abs Monocytes (Manual) 0.19 Smudge Cells Present Platelet Estimate Adequate Anisocytosis 1+ Schistocytes None seen Sodium 135 L Potassium 3.7 Chloride 103 Carbon Dioxide 28 Anion Gap 4 BUN 23 H Creatinine 0.64 L Estim Creat Clear Calc 60 Estimated GFR > 60 Glucose 93 Calcium 7.7 L Magnesium 2.0 Total Bilirubin 0.4 AST 26 ALT 10 Alkaline Phosphatase 65 NT-Pro-B Natriuret Pep 2640 H Total Protein 6.0 L Albumin 2.9 L Triglycerides 59 Cholesterol 112 LDL Cholesterol Direct 36 HDL Direct 47 Lipase 1743 H
[2024-11-22] MEDS: HYDROXYCHLOROQUINE SULFATE 200 MG TABLET 400 MG PO (16:54)
[2024-11-22] MEDS: CALCIUM/VITAMIN D 500 MG/5 MCG (200 I.U.) TABLET PO (16:54)
[2024-11-22 20:40] VITALS: BP 147/58; PULSE 69; RESP 18; TEMP 37.1; O2SAT 92
[2024-11-22] MEDS: busPIRone HCL 5 MG TABLET PO (22:06)
[2024-11-23 05:38] VITALS: BP 140/56; PULSE 57; RESP 20; TEMP 36.2; O2SAT 98
[2024-11-23] MEDS: LEVOTHYROXINE SODIUM 88 MCG TABLET PO (06:09)
[2024-11-23 10:50] LABS: Hematocrit 32.3 % (37.0-47.0); Hemoglobin 10.2 g/dL (12.0-15.0); Mean Corpuscular HGB Conc 31.6 g/dl (32-36); Mean Corpuscular Hemoglobin 26.2 pg (26-34); Mean Platelet Volume 10.2 fl (7.4-10.4); Platelet Count Result 190 k/mm3 (150-375); Red Blood Count 3.89 M/mm3 (4.2-5.4); Red Cell Distribution Width 14.6 % (11.5-14.5); White Blood Count 15.5 K/mm3 (4.5-10.0)
[2024-11-23] MEDS: PRAVASTATIN SODIUM 20 MG TABLET 40 MG PO (10:55)
[2024-11-23] MEDS: PANTOPRAZOLE 40 MG TABLET PO (10:55)
[2024-11-23] MEDS: ENOXAPARIN 40 MG/0.4 ML SYRINGE SUB-Q (10:55)
[2024-11-23] MEDS: PARoxetine 10 MG TABLET PO (10:55)
[2024-11-23] MEDS: HYDROXYCHLOROQUINE SULFATE 200 MG TABLET 400 MG PO (10:59)
[2024-11-23 11:10] LABS: Alanine Aminotransferase 9 U/L (6-35); Albumin Level 2.8 g/dL (3.5-5.1); Alkaline Phosphatase 65 U/L (38-126); Anion Gap 4 mmol/L (4-12); Aspartate Amino Transferase 24 U/L (14-36); Bilirubin,Total 0.4 mg/dL (0.2-1.3); Blood Urea Nitrogen 19 mg/dL (7-17); Calcium 7.9 mg/dL (8.4-10.2); Carbon Dioxide 29 mmol/L (22-30); Chloride 101 mmol/L (98-107); Estimated CRCL calculation 55 ml/min; Estimated Glomerular Filt Rate > 60; Glucose 93 mg/dL (65-110); Potassium 3.5 mmol/L (3.4-5.0); Sodium 134 mmol/L (137-145); Total Protein 5.8 g/dL (6.3-8.2)
[2024-11-23 11:59] LABS: Lipase 318 U/L (23-300)
--- NOTE | 2024-11-23 12:32 | P.DS_ITS ---
DS: Admitting Diagnosis Discharge Date 11/23 Admitting Diagnosis Abdominal pain. DS: Discharge Diagnosis Discharge Diagnosis (1) Acute pancreatitis: Qualifiers: Acute pancreatitis complication: no infection or necrosis Pancreatitis type: drug induced Qualified Code(s): K85.30 - Drug induced acute pancreatitis without necrosis or infection Code(s): K85.90 - Acute pancreatitis without necrosis or infection, unspecified Status: Acute (2) Elevated blood pressure reading: Code(s): R03.0 - Elevated blood-pressure reading, without diagnosis of hypertension Status: Acute (3) Hypothyroidism: Code(s): E03.9 - Hypothyroidism, unspecified Status: Acute (4) Seronegative rheumatoid arthritis of multiple sites: Code(s): M06.09 - Rheumatoid arthritis without rheumatoid factor, multiple sites Status: Acute Plan patient lipase have improved to 1743 compared to 8463 upon arrival her triglycerides are normal, patient white counts are rising 19.1 compared to 10.5 upon arrival however her clinical symptoms have improved and has no fever, patient is seen by GI and further recommendation to follow. will monitor. Acute pancreatitis Continue Pain control PRN RUQ US and Lipid panel ordered continue IVF, start fluid diet tomorrow monitor HTN titrate home meds with clinical course Hypothyroidism continue home meds RA continue home meds DVT prophylaxis on Aq Lovenox DS: Summary Hospital Course Reason for hospitalization: patient lipase have improved to 1743 compared to 8463 upon arrival her triglycerides are normal, patient white counts are rising 19.1 compared to 10.5 upon arrival however her clinical symptoms have improved and has no fever, patient is seen by GI and further recommendation to follow. will monitor. today patient patient lipase are 318 compared to when she arrived 8463, her white counts are trending down, pain has improved and able to tolerated diet, will discharge home today with her daughter who is a [employer] and present. Hospital Course: patient lipase have improved to 1743 compared to 8463 upon arrival her triglycerides are normal, patient white counts are rising 19.1 compared to 10.5 upon arrival however her clinical symptoms have improved and has no fever, patient is seen by GI and further recommendation to follow. will monitor. Time Spent with Patient Time attestation: Total time spent providing and/or coordinating discharge services: Exam Narrative: Patient is comfortable, NAD HEENT: eyes are clear and none icteric LUNGS:CTA HEART: RR S1S2 ABD: BS+, Soft and nontender Lower extremities: no edema SKIN: nonjaundiced Neuro: grossly intact. DS: Data Data Completed and Pending Labs on day of discharge: Labs from last 24 hours 11/23/24 10:41 WBC 15.5 H RBC 3.89 L Hgb 10.2 L Hct 32.3 L MCV 83.0 MCH 26.2 MCHC 31.6 L RDW 14.6 H Plt Count 190 MPV 10.2 Sodium 134 L Potassium 3.5 Chloride 101 Carbon Dioxide 29 Anion Gap 4 BUN 19 H Creatinine 0.71 Estim Creat Clear Calc 55 Estimated GFR > 60 Glucose 93 Calcium 7.9 L Magnesium 2.0 Total Bilirubin 0.4 AST 24 ALT 9 Alkaline Phosphatase 65 Total Protein 5.8 L Albumin 2.8 L Lipase 318 H Discharge Plan Discharge Attending physician on discharge: Bebeto Curiel Consulting providers: Fabio León; Adele Patel; Dulce Sinha; Jesse Hodge; Erik David; Stewart Sneed; Girma Bagley Discharging Clinician: Andi Noble Patient Disposition: Home Activity: as tolerated Diet: low fat Discharge Instructions: Patient is instructed to low fat diet, avoid heavy fatty meals. patient to follow discharge care instruction from her GI and follow up as scheduled, patient to follow up with her primary care provider as soon as possible, patient is instructed if symptoms redevelop to go to nearest ER. Patient Instructions: Antibiotic Form Patient Language: Lao Stand Alone Forms: General Discharge Information Follow-up/Referrals: Petr,MD Tone [Primary Care Provider] - Fabio León MD [Physician] - Discharge Medications: New albuterol sulfate [Ventolin HFA] 90 mcg/actuation HFA aerosol inhaler 2 puff inhalation QID PRN (Reason: shortness of breath or wheezing) Qty: 6.7 0RF buspirone 5 mg Tablet 5 mg PO HS Qty: 30 0RF pantoprazole 40 mg Tablet,Delayed Release (Dr/Ec) 40 mg PO QAM Qty: 30 0RF prochlorperazine maleate [Compazine] 10 mg tablet 10 mg PO Q8H PRN (Reason: nausea and vomiting) Qty: 10 0RF hydrocodone-acetaminophen 5-325 mg Tablet 1 tablet PO Q4H PRN (Reason: Pain Rated 4-6) Qty: 15 0RF Continued paroxetine HCl 10 mg tablet 10 mg PO DAILY pravastatin 40 mg tablet 40 mg PO DAILY omeprazole 20 mg capsule,delayed release(DR/EC) 20 mg PO DAILY MDD 20 mg PRN (Reason: Allergy Symptoms) levothyroxine [Euthyrox] 88 mcg tablet 88 mcg PO DAILY calcium carbonate-vit D3-min 600 mg calcium- 400 unit tablet 1 tablet PO BID hydroxychloroquine [Plaquenil] 200 mg tablet 400 mg PO DAILY Qty: 180 1RF albuterol sulfate 90 mcg/actuation HFA aerosol inhaler 2 puff INHALATION Q6H PRN (Reason: shortness of breath or wheezing) buspirone 10 mg tablet 5 mg PO Q12H PRN (Reason: anxiety) Date of admission: 11/20/24 20:03 Primary Care Provider: Petr,[facility] Admitting Provider: Bebeto Curiel Attending physician on admission: Andi Noble Condition: Stable
== END 2024-11-23 14:20 | disposition home or self-care (01) | DRG 440 ==
LOC: ANHED 19:17 → ANH2MED 20:49
PROVIDERS: Internal Medicine; Physician Assistant; Admitting Provider General Practice; Emergency Provider Emergency Medicine; PCP Family Medicine; Visit Provider Family Medicine
DX: K85.90 Acute pancreatitis without necrosis or infection, unspecified (principal); J43.9 Emphysema, unspecified; K21.9 Gastro-esophageal reflux disease without esophagitis; E03.9 Hypothyroidism, unspecified; E78.5 Hyperlipidemia, unspecified; E55.9 Vitamin D deficiency, unspecified; F41.9 Anxiety disorder, unspecified; I10 Essential (primary) hypertension; K76.0 Fatty (change of) liver, not elsewhere classified; K85.30 Drug induced acute pancreatitis without necrosis or infection; M06.09 Rheumatoid arthritis without rheumatoid factor, multiple sites; T36.4X5A Adverse effect of tetracyclines, initial encounter; Z87.891 Personal history of nicotine dependence
CPT/HCPCS: 36415; 71045; 74177; 76705; 80053; 80061; 83690; 83735; 83880; 84443; 84478; 85025; 85027; 96361; 96374; 96375; 96376; 99285; A9270; J0780; J1650; J2270; J2405; J3475; J7030; J7120; Q9967

== ENCOUNTER 2025-01-02 16:36 | Outpatient (CLI) | payer MEDICARE, BC, SELFPAY ==
--- NOTE | ~2025-01-02 | XR_ITS ---
EXAMINATION: XR chest 2V Exam Date/Time: 01/02/2025 16:40 CDT HISTORY: Interstitial emphysema Comparison: 11/22/2024; CT chest 10/06/2024. RESULT: Lines, tubes, and devices: None. Lungs and pleura: Moderate diffuse reticular opacities. Granulomatous calcification. Streaky bibasil ar scar/atelectasis. Cardiomediastinal silhouette: Stable. Other: No acute osseous or upper abdominal finding. IMPRESSION: Pulmonary opacities may represent interstitial edema overlying chronic emphysematous/interstitial suki nges. Reviewed, dictated and finalized at location K. IMPRESSION: Pulmonary opacities may represent interstitial edema overlying chronic emphysem atous/interstitial changes.
== END 2025-01-02 16:37 | disposition home or self-care (01) ==
LOC: MICIMG 16:38
PROVIDERS: PCP Family Medicine; Visit Provider Nurse Practitioner Adult Health
DX: R91.8 Other nonspecific abnormal finding of lung field (principal); J98.2 Interstitial emphysema
CPT/HCPCS: 71046